=== PATIENT | male | born 2000 | race Caucasian/White ===

== ENCOUNTER 2022-07-28 12:49 | Inpatient (IN) | payer OTHER ==
[2022-07-28 14:00] VITALS: BMI 32.1
[2022-07-28] MEDS ORDERED: NALOXONE HCL (KLOXXADO) 8 MG SPRAY NS PRN (15:45)
[2022-07-28] MEDS ORDERED: BISMUTH SUBSALICYLATE 524 MG/30 ML PO PRN (15:45)
[2022-07-28] MEDS ORDERED: ACETAMINOPHEN 325 MG TABLET (FP) PO PRN ×2 (15:45)
[2022-07-28] MEDS ORDERED: MAGNESIUM HYDROX 2400MG/30ML ORAL SUSPENSION 30 ML CUP PO PRN (15:45)
[2022-07-28] MEDS ORDERED: MAG HYDROX/AL HYDROX/SIMETH 30 ML UNIT-DOSE CUP PO PRN (15:45)
[2022-07-28] MEDS ORDERED: ONDANSETRON *ODT* 4 MG TABLET SL PRN (15:45)
[2022-07-28] MEDS ORDERED: DICYCLOMINE HCL 10 MG CAPSULE PO PRN (15:45)
[2022-07-28] MEDS ORDERED: LOPERAMIDE HCL 2 MG CAPSULE PO PRN (15:45)
[2022-07-28] MEDS ORDERED: POLYETHYLENE GLYCOL (HEALTHYLAX) 3350 17 GM PACKET PO PRN (15:45)
[2022-07-28] MEDS ORDERED: IBUPROFEN 600 MG TABLET (FP) PO PRN (15:45)
[2022-07-28] MEDS ORDERED: IBUPROFEN 400 MG TABLET (FP) PO PRN (15:45)
[2022-07-28] MEDS: diazePAM 5 MG TABLET PO PRN (17:26)
[2022-07-28] MEDS: diazePAM 5 MG TABLET PO SCH ×2 (17:29→22:08)
[2022-07-28] MEDS: METHOCARBAMOL 500 MG TABLET PO PRN (18:17)
[2022-07-28] MEDS: NICOTINE 10 MG CARTRIDGE (INHALER) IH PRN (18:59)
[2022-07-28] MEDS: THIAMINE HCL 100 MG TABLET (FP) PO SCH (22:07)
[2022-07-28] MEDS: MELATONIN 5 MG TABLETS PO SCH (22:09)
[2022-07-29] MEDS: diazePAM 5 MG TABLET PO SCH ×4 (04:39→22:12)
[2022-07-29] MEDS: NICOTINE 10 MG CARTRIDGE (INHALER) IH PRN ×4 (04:39→22:14)
[2022-07-29] MEDS: METHOCARBAMOL 500 MG TABLET PO PRN ×3 (04:40→17:35)
[2022-07-29] MEDS: BENZOCAINE/MENTHOL (CHLORASEPTIC ) LOZENGE MM PRN ×3 (05:10→23:02)
[2022-07-29] MEDS: diazePAM 5 MG TABLET PO PRN ×3 (07:26→19:32)
[2022-07-29] MEDS ORDERED: methaDONE HCL 10 MG TABLET PO SCH (08:45)
[2022-07-29] MEDS ORDERED: ALBUTEROL SO4 HFA INHALER IH PRN (08:54)
[2022-07-29] MEDS: hydrOXYzine PAMOATE 25 MG CAPSULE (FP) PO PRN (09:12)
[2022-07-29] MEDS: PRENATAL VITAMINS W/ FOLIC ACID TABLET (FP) PO SCH (09:12)
[2022-07-29 10:55] LABS: HEMATOCRIT 40.8 % (35.4-49); HEMOGLOBIN 14.4 GM/dL (11.7-16.9); MCH 31.1 pg (25.7-33.7); MCHC 35.3 g/dl (32.0-35.9); MEAN CELL VOLUME 88.1 fl (80-96); MEAN PLT VOLUME 8.1 fl (7.5-11.1); PLATELET COUNT 271 10^3/uL (134-434); RBC 4.63 M/mm3 (4.00-5.60); RDW 13.3 % (11.9-15.9); WHITE BLOOD COUNT 6.2 K/mm3 (4.0-10.0)
[2022-07-29] MEDS ORDERED: FAMOTIDINE 20 MG TABLET PO ONE (10:57)
[2022-07-29] MEDS ORDERED: cloNIDine HCL 0.1 MG TABLET PO ONE (10:59)
[2022-07-29] MEDS: NICOTINE 21 MG/24 HOURS TOPICAL PATCH TD SCH (11:15)
[2022-07-29 11:24] LABS: CREATININE 0.9 mg/dL (0.55-1.3)
[2022-07-29 11:26] LABS: ALBUMIN 4.5 g/dl (3.4-5.0); BILIRUBIN,TOTAL 0.5 mg/dL (0.2-1)
[2022-07-29 11:27] LABS: BLOOD UREA NITROGEN 13.9 mg/dL (7-18)
[2022-07-29 11:29] LABS: TOT PROT 8.1 g/dl (6.4-8.2)
[2022-07-29] MEDS: NICOTINE POLACRILEX 2 MG GUM BC PRN ×3 (11:31→22:15)
[2022-07-29] MEDS: GABAPENTIN 300 MG CAPSULE PO SCH ×2 (13:24→22:11)
[2022-07-29] MEDS ORDERED: GABAPENTIN 300 MG CAPSULE PO SCH (14:00)
[2022-07-29] MEDS: PATIENT'S OWN MEDICATION (NON-FORMULARY) (Beclomethasone Dipropionate [Qvar Redihaler] 10. IH SCH ×2 (15:57→22:18)
[2022-07-29] MEDS: THIAMINE HCL 100 MG TABLET (FP) PO SCH (22:11)
[2022-07-29] MEDS: FAMOTIDINE 20 MG TABLET PO SCH (22:11)
[2022-07-29] MEDS: cloNIDine HCL 0.1 MG TABLET PO SCH (22:12)
[2022-07-29] MEDS: MELATONIN 5 MG TABLETS PO SCH (22:13)
[2022-07-30] MEDS: METHOCARBAMOL 500 MG TABLET PO PRN ×3 (04:15→22:31)
[2022-07-30] MEDS: NICOTINE 10 MG CARTRIDGE (INHALER) IH PRN ×4 (04:17→17:32)
[2022-07-30] MEDS: diazePAM 5 MG TABLET PO SCH ×3 (05:07→22:25)
[2022-07-30] MEDS: GABAPENTIN 300 MG CAPSULE PO SCH ×3 (05:11→22:24)
[2022-07-30] MEDS: hydrOXYzine PAMOATE 25 MG CAPSULE (FP) PO PRN (07:11)
[2022-07-30] MEDS: NICOTINE POLACRILEX 2 MG GUM BC PRN ×3 (07:11→17:32)
[2022-07-30] MEDS: diazePAM 5 MG TABLET PO PRN ×2 (08:53→17:29)
[2022-07-30] MEDS: NICOTINE 21 MG/24 HOURS TOPICAL PATCH TD SCH (10:25)
[2022-07-30] MEDS: cloNIDine HCL 0.1 MG TABLET PO SCH ×2 (10:25→22:25)
[2022-07-30] MEDS: FAMOTIDINE 20 MG TABLET PO SCH ×2 (10:26→22:25)
[2022-07-30] MEDS: PRENATAL VITAMINS W/ FOLIC ACID TABLET (FP) PO SCH (10:26)
[2022-07-30] MEDS: PATIENT'S OWN MEDICATION (NON-FORMULARY) (Beclomethasone Dipropionate [Qvar Redihaler] 10. IH SCH ×2 (10:28→22:24)
[2022-07-30] MEDS: BENZOCAINE/MENTHOL (CHLORASEPTIC ) LOZENGE MM PRN ×2 (10:58→23:19)
[2022-07-30] MEDS ORDERED: SUVOREXANT 10 MG TABLET PO PRN (22:00)
[2022-07-30] MEDS: THIAMINE HCL 100 MG TABLET (FP) PO SCH (22:24)
[2022-07-31] MEDS: METHOCARBAMOL 500 MG TABLET PO PRN ×2 (05:37→12:04)
[2022-07-31] MEDS: NICOTINE 10 MG CARTRIDGE (INHALER) IH PRN ×2 (05:38→09:50)
[2022-07-31] MEDS ORDERED: diazePAM 5 MG TABLET PO SCH (06:00)
[2022-07-31] MEDS: GABAPENTIN 300 MG CAPSULE PO SCH ×2 (07:00→13:04)
[2022-07-31] MEDS: PATIENT'S OWN MEDICATION (NON-FORMULARY) (Beclomethasone Dipropionate [Qvar Redihaler] 10. IH SCH (09:48)
[2022-07-31] MEDS: hydrOXYzine PAMOATE 25 MG CAPSULE (FP) PO PRN (09:49)
[2022-07-31] MEDS: cloNIDine HCL 0.1 MG TABLET PO SCH (09:49)
[2022-07-31] MEDS: FAMOTIDINE 20 MG TABLET PO SCH (09:49)
[2022-07-31] MEDS: PRENATAL VITAMINS W/ FOLIC ACID TABLET (FP) PO SCH (09:50)
[2022-07-31] MEDS: NICOTINE POLACRILEX 2 MG GUM BC PRN ×2 (09:52→12:06)
[2022-07-31] MEDS: NICOTINE 21 MG/24 HOURS TOPICAL PATCH TD SCH (10:02)
[2022-07-31] MEDS: diazePAM 5 MG TABLET PO PRN (12:05)
[2022-07-31 13:11] VITALS: BP 145/82; PULSE 83; RESP 20; TEMP 96.8
[2022-08-01] MEDS ORDERED: diazePAM 5 MG TABLET PO ONE (06:00)
== END 2022-07-31 14:06 | disposition home or self-care (01) | DRG 773 ==
LOC: YASAS 12:49 → Y6N 16:40
PROVIDERS: ADMIT Allergy & Immunology; ATTEND Surgery
PROC: HZ2ZZZZ Detoxification Services for Substance Abuse Treatment (ICD-10-PCS; principal; 2022-07-28)
DX: F13.230 Sedative, hypnotic or anxiolytic dependence with withdrawal, uncomplicated (principal); F11.20 Opioid dependence, uncomplicated; F17.210 Nicotine dependence, cigarettes, uncomplicated; F19.280 Other psychoactive substance dependence with psychoactive substance-induced anxiety disorder; F19.282 Other psychoactive substance dependence with psychoactive substance-induced sleep disorder; F41.9 Anxiety disorder, unspecified; F90.9 Attention-deficit hyperactivity disorder, unspecified type; I10 Essential (primary) hypertension; J45.909 Unspecified asthma, uncomplicated
CPT/HCPCS: 36415; 80053; 85027; 86780; C9803-CS; U0003; U0005

== ENCOUNTER 2023-03-19 20:29 | Inpatient (IN) | payer OTHER ==
[2023-03-19 21:34] VITALS: BMI 31.5
[2023-03-19] MEDS ORDERED: LOPERAMIDE HCL 2 MG CAPSULE PO PRN (22:30)
[2023-03-19] MEDS ORDERED: NALOXONE HCL (KLOXXADO) 8 MG SPRAY NS PRN (22:30)
[2023-03-19] MEDS ORDERED: NALOXONE HCL 0.4 MG/ML VIAL IM PRN (22:30)
[2023-03-19] MEDS ORDERED: POLYETHYLENE GLYCOL (HEALTHYLAX) 3350 17 GM PACKET PO PRN (22:30)
[2023-03-19] MEDS ORDERED: guaiFENesin 600 MG TABLET.ER (FP) PO PRN (22:30)
[2023-03-19] MEDS ORDERED: BISMUTH SUBSALICYLATE 524 MG/30 ML PO PRN (22:30)
[2023-03-19] MEDS ORDERED: ONDANSETRON *ODT* 4 MG TABLET SL PRN (22:30)
[2023-03-19] MEDS ORDERED: ACETAMINOPHEN 325 MG TABLET (FP) PO PRN (22:30)
[2023-03-19] MEDS ORDERED: BENZONATATE 200 MG CAPSULE PO PRN (22:30)
[2023-03-19] MEDS ORDERED: MAGNESIUM HYDROX 2400MG/30ML ORAL SUSPENSION 30 ML CUP PO PRN (22:30)
[2023-03-19] MEDS ORDERED: P-EPHED 60MG/TRIPROLIDI 2.5MG TABLET PO PRN (22:30)
[2023-03-19] MEDS ORDERED: DICYCLOMINE HCL 10 MG CAPSULE PO PRN (22:30)
[2023-03-19] MEDS ORDERED: IBUPROFEN 600 MG TABLET (FP) PO PRN (22:30)
[2023-03-19] MEDS ORDERED: IBUPROFEN 400 MG TABLET (FP) PO PRN (22:30)
[2023-03-19] MEDS ORDERED: BENZOCAINE/MENTHOL (CHLORASEPTIC ) LOZENGE MM PRN (22:30)
[2023-03-19] MEDS ORDERED: ALBUTEROL SO4 HFA INHALER IH PRN (22:31)
[2023-03-19] MEDS ORDERED: GABAPENTIN 300 MG CAPSULE PO ONE (23:00)
[2023-03-19] MEDS: cloNIDine HCL 0.1 MG TABLET PO PRN (23:38)
[2023-03-19] MEDS: diazePAM 5 MG TABLET PO PRN (23:38)
[2023-03-19] MEDS: METHOCARBAMOL 500 MG TABLET PO PRN (23:38)
[2023-03-19] MEDS: NICOTINE POLACRILEX 4 MG GUM BUC PRN (23:41)
[2023-03-20] MEDS: hydrOXYzine PAMOATE 25 MG CAPSULE (FP) PO PRN ×2 (05:37→22:05)
[2023-03-20] MEDS: diazePAM 5 MG TABLET PO PRN ×4 (05:37→20:20)
[2023-03-20] MEDS: METHOCARBAMOL 500 MG TABLET PO PRN ×2 (10:08→17:24)
[2023-03-20] MEDS: cloNIDine HCL 0.1 MG TABLET PO PRN ×2 (10:09→22:05)
[2023-03-20] MEDS: PRENATAL VITAMINS W/ FOLIC ACID TABLET (FP) PO SCH (10:09)
[2023-03-20] MEDS: NICOTINE POLACRILEX 4 MG GUM BUC PRN ×4 (10:10→22:05)
[2023-03-20] MEDS ORDERED: methaDONE HCL 40 MG DISPERSABLE TABLET PO SCH (10:30)
[2023-03-20] MEDS: diazePAM 5 MG TABLET PO SCH ×3 (11:29→22:05)
[2023-03-20 12:16] LABS: HEMATOCRIT 39.6 % (35.4-49); HEMOGLOBIN 13.4 GM/dL (11.7-16.9); MCH 27.3 pg (25.7-33.7); MCHC 33.9 g/dl (32.0-35.9); MEAN CELL VOLUME 80.4 fl (80-96); MEAN PLT VOLUME 7.7 fl (7.5-11.1); PLATELET COUNT 296 10^3/uL (134-434); RBC 4.93 M/mm3 (4.00-5.60); RDW 17.2 % (11.9-15.9); WHITE BLOOD COUNT 5.5 K/mm3 (4.0-10.0)
[2023-03-20 12:19] LABS: POTASSIUM 4.3 mmol/L (3.5-5.1)
[2023-03-20 12:21] LABS: ALBUMIN 3.7 g/dl (3.4-5.0); CALCIUM 8.8 mg/dL (8.5-10.1)
[2023-03-20 12:23] LABS: BLOOD UREA NITROGEN 18.5 mg/dL (7-18)
[2023-03-20 12:26] LABS: BILIRUBIN,TOTAL 0.5 mg/dL (0.2-1)
[2023-03-20 12:28] LABS: TOT PROT 7.4 g/dl (6.4-8.2)
[2023-03-20] MEDS: GABAPENTIN 400 MG CAPSULE PO SCH ×2 (14:15→22:04)
[2023-03-20] MEDS: MELATONIN 5 MG TABLETS PO SCH (22:04)
[2023-03-20] MEDS: THIAMINE HCL 100 MG TABLET (FP) PO SCH (22:05)
[2023-03-21] MEDS: GABAPENTIN 400 MG CAPSULE PO SCH ×3 (05:44→22:07)
[2023-03-21] MEDS: diazePAM 5 MG TABLET PO SCH ×3 (05:44→22:06)
[2023-03-21] MEDS: METHOCARBAMOL 500 MG TABLET PO PRN ×3 (05:46→20:37)
[2023-03-21] MEDS: diazePAM 5 MG TABLET PO PRN ×4 (07:42→20:39)
[2023-03-21] MEDS: MAG HYDROX/AL HYDROX/SIMETH 30 ML UNIT-DOSE CUP PO PRN (07:43)
[2023-03-21] MEDS: NICOTINE POLACRILEX 4 MG GUM BUC PRN ×5 (09:10→20:39)
[2023-03-21] MEDS: hydrOXYzine PAMOATE 25 MG CAPSULE (FP) PO PRN ×2 (09:10→22:07)
[2023-03-21] MEDS: cloNIDine HCL 0.1 MG TABLET PO PRN ×2 (10:06→22:07)
[2023-03-21] MEDS: PRENATAL VITAMINS W/ FOLIC ACID TABLET (FP) PO SCH (10:06)
[2023-03-21] MEDS: NICOTINE 21 MG/24 HOURS TOPICAL PATCH TD SCH (11:59)
[2023-03-21] MEDS: PANTOPRAZOLE 20 MG TABLET PO SCH (11:59)
[2023-03-21] MEDS: THIAMINE HCL 100 MG TABLET (FP) PO SCH (22:07)
[2023-03-21] MEDS: MELATONIN 5 MG TABLETS PO SCH (22:07)
[2023-03-22] MEDS: diazePAM 5 MG TABLET PO SCH ×2 (05:37→17:06)
[2023-03-22] MEDS: GABAPENTIN 400 MG CAPSULE PO SCH ×3 (05:37→22:16)
[2023-03-22] MEDS: METHOCARBAMOL 500 MG TABLET PO PRN ×3 (05:38→22:16)
[2023-03-22] MEDS: NICOTINE POLACRILEX 4 MG GUM BUC PRN ×6 (05:41→22:18)
[2023-03-22] MEDS: MAG HYDROX/AL HYDROX/SIMETH 30 ML UNIT-DOSE CUP PO PRN (06:42)
[2023-03-22] MEDS: diazePAM 5 MG TABLET PO PRN ×4 (07:46→23:21)
[2023-03-22] MEDS: PANTOPRAZOLE 20 MG TABLET PO SCH (10:07)
[2023-03-22] MEDS: PRENATAL VITAMINS W/ FOLIC ACID TABLET (FP) PO SCH (10:07)
[2023-03-22] MEDS: NICOTINE 21 MG/24 HOURS TOPICAL PATCH TD SCH (10:08)
[2023-03-22] MEDS: hydrOXYzine PAMOATE 25 MG CAPSULE (FP) PO PRN ×2 (10:09→22:16)
[2023-03-22] MEDS: cloNIDine HCL 0.1 MG TABLET PO PRN ×2 (10:09→22:16)
[2023-03-22] MEDS: THIAMINE HCL 100 MG TABLET (FP) PO SCH (22:16)
[2023-03-22] MEDS: MELATONIN 5 MG TABLETS PO SCH (22:16)
[2023-03-23] MEDS: PANTOPRAZOLE 40 MG TABLET PO SCH (05:25)
[2023-03-23] MEDS: GABAPENTIN 400 MG CAPSULE PO SCH ×2 (05:25→13:58)
[2023-03-23] MEDS: METHOCARBAMOL 500 MG TABLET PO PRN ×3 (05:27→17:25)
[2023-03-23] MEDS ORDERED: diazePAM 5 MG TABLET PO ONE ×2 (06:00→18:00)
[2023-03-23] MEDS: diazePAM 5 MG TABLET PO PRN (09:36)
[2023-03-23] MEDS: PRENATAL VITAMINS W/ FOLIC ACID TABLET (FP) PO SCH (09:36)
[2023-03-23] MEDS: hydrOXYzine PAMOATE 25 MG CAPSULE (FP) PO PRN ×2 (09:36→22:13)
[2023-03-23] MEDS: NICOTINE 21 MG/24 HOURS TOPICAL PATCH TD SCH (09:39)
[2023-03-23] MEDS: NICOTINE POLACRILEX 4 MG GUM BUC PRN ×4 (09:50→22:14)
[2023-03-23] MEDS: cloNIDine HCL 0.1 MG TABLET PO PRN (11:27)
[2023-03-23] MEDS: THIAMINE HCL 100 MG TABLET (FP) PO SCH (22:13)
[2023-03-23] MEDS: GABAPENTIN 300 MG CAPSULE PO SCH (22:13)
[2023-03-23] MEDS: MELATONIN 5 MG TABLETS PO SCH (22:13)
[2023-03-24] MEDS: PANTOPRAZOLE 40 MG TABLET PO SCH (05:16)
[2023-03-24] MEDS: GABAPENTIN 300 MG CAPSULE PO SCH ×2 (05:16→13:53)
[2023-03-24] MEDS: METHOCARBAMOL 500 MG TABLET PO PRN ×2 (05:18→13:53)
[2023-03-24] MEDS ORDERED: diazePAM 5 MG TABLET PO ONE (06:00)
[2023-03-24] MEDS: PRENATAL VITAMINS W/ FOLIC ACID TABLET (FP) PO SCH (10:14)
[2023-03-24] MEDS: NICOTINE 21 MG/24 HOURS TOPICAL PATCH TD SCH (10:14)
[2023-03-24] MEDS: hydrOXYzine PAMOATE 25 MG CAPSULE (FP) PO PRN (10:15)
[2023-03-24] MEDS: cloNIDine HCL 0.1 MG TABLET PO PRN (10:15)
[2023-03-24] MEDS: NICOTINE POLACRILEX 4 MG GUM BUC PRN ×2 (10:16→17:48)
[2023-03-24 16:47] VITALS: BP 132/73; PULSE 90; RESP 19; TEMP 97.8
== END 2023-03-24 19:23 | disposition other institution (70) | DRG 773 ==
LOC: YASAS 20:29 → Y3N 22:58
PROVIDERS: ADMIT Allergy & Immunology; ATTEND Surgery
PROC: HZ2ZZZZ Detoxification Services for Substance Abuse Treatment (ICD-10-PCS; principal; 2023-03-19)
DX: F13.230 Sedative, hypnotic or anxiolytic dependence with withdrawal, uncomplicated (principal); F11.20 Opioid dependence, uncomplicated; F17.210 Nicotine dependence, cigarettes, uncomplicated; I10 Essential (primary) hypertension; J45.20 Mild intermittent asthma, uncomplicated; K21.9 Gastro-esophageal reflux disease without esophagitis; Z86.59 Personal history of other mental and behavioral disorders
CPT/HCPCS: 36415; 80053; 85027; 86780; 87635

== ENCOUNTER 2023-04-19 19:32 | Inpatient (IN) | payer OTHER ==
[2023-04-19 21:13] VITALS: BMI 42.6
[2023-04-19] MEDS ORDERED: ALBUTEROL SO4 0.083% IH SOL 2.5 MG/3 ML VIAL.NEB. NEB PRN (22:50)
[2023-04-19] MEDS ORDERED: P-EPHED 60MG/TRIPROLIDI 2.5MG TABLET PO PRN (23:00)
[2023-04-19] MEDS ORDERED: IBUPROFEN 400 MG TABLET (FP) PO PRN (23:00)
[2023-04-19] MEDS ORDERED: MAG HYDROX/AL HYDROX/SIMETH 30 ML UNIT-DOSE CUP PO PRN (23:00)
[2023-04-19] MEDS ORDERED: NALOXONE HCL 0.4 MG/ML VIAL IM PRN (23:00)
[2023-04-19] MEDS ORDERED: LOPERAMIDE HCL 2 MG CAPSULE PO PRN (23:00)
[2023-04-19] MEDS ORDERED: NALOXONE HCL (KLOXXADO) 8 MG SPRAY NS PRN (23:00)
[2023-04-19] MEDS ORDERED: BENZOCAINE/MENTHOL (CHLORASEPTIC ) LOZENGE MM PRN (23:00)
[2023-04-19] MEDS ORDERED: ACETAMINOPHEN 325 MG TABLET (FP) PO PRN (23:00)
[2023-04-19] MEDS ORDERED: DICYCLOMINE HCL 10 MG CAPSULE PO PRN (23:00)
[2023-04-19] MEDS ORDERED: BENZONATATE 200 MG CAPSULE PO PRN (23:00)
[2023-04-19] MEDS ORDERED: ONDANSETRON *ODT* 4 MG TABLET SL PRN (23:00)
[2023-04-19] MEDS ORDERED: BISMUTH SUBSALICYLATE 524 MG/30 ML PO PRN (23:00)
[2023-04-19] MEDS ORDERED: IBUPROFEN 600 MG TABLET (FP) PO PRN (23:00)
[2023-04-19] MEDS ORDERED: guaiFENesin 600 MG TABLET.ER (FP) PO PRN (23:00)
[2023-04-19] MEDS ORDERED: MAGNESIUM HYDROX 2400MG/30ML ORAL SUSPENSION 30 ML CUP PO PRN (23:00)
[2023-04-19] MEDS ORDERED: POLYETHYLENE GLYCOL (HEALTHYLAX) 3350 17 GM PACKET PO PRN (23:00)
[2023-04-20] MEDS: cloNIDine HCL 0.1 MG TABLET PO SCH ×3 (02:00→22:02)
[2023-04-20] MEDS ORDERED: cloNIDine HCL 0.1 MG TABLET ONE (02:13)
[2023-04-20] MEDS ORDERED: diazePAM 5 MG TABLET ONE (02:13)
[2023-04-20] MEDS ORDERED: IBUPROFEN 400 MG TABLET (FP) PO ONE (02:13)
[2023-04-20] MEDS: diazePAM 5 MG TABLET PO PRN ×2 (02:16→13:24)
[2023-04-20] MEDS: diazePAM 5 MG TABLET PO SCH ×5 (02:19→22:04)
[2023-04-20] MEDS: METHOCARBAMOL 500 MG TABLET PO PRN ×3 (03:09→20:36)
[2023-04-20] MEDS: PANTOPRAZOLE 40 MG TABLET PO SCH (06:13)
[2023-04-20] MEDS: NICOTINE POLACRILEX 4 MG GUM BUC PRN ×4 (07:11→20:38)
[2023-04-20] MEDS ORDERED: methaDONE HCL 10 MG TABLET PO SCH (08:45)
[2023-04-20] MEDS: PRENATAL VITAMINS W/ FOLIC ACID TABLET (FP) PO SCH (10:12)
[2023-04-20] MEDS: PATIENT'S OWN MEDICATION (NON-FORMULARY) (Amoxicillin/Potassium Clav [Amox-Clav 875-125 Mg PO SCH ×2 (10:12→16:58)
[2023-04-20] MEDS: NICOTINE 21 MG/24 HOURS TOPICAL PATCH TD SCH (11:30)
[2023-04-20] MEDS: GABAPENTIN 300 MG CAPSULE PO SCH ×2 (13:23→22:02)
[2023-04-20] MEDS ORDERED: MELATONIN 5 MG TABLETS PO SCH (22:00)
[2023-04-20] MEDS: ALBUTEROL SO4 HFA INHALER IH PRN (22:01)
[2023-04-20] MEDS: THIAMINE HCL 100 MG TABLET (FP) PO SCH (22:02)
[2023-04-20] MEDS: SUVOREXANT 10 MG TABLET PO PRN (22:04)
[2023-04-21] MEDS: GABAPENTIN 300 MG CAPSULE PO SCH ×3 (05:53→22:11)
[2023-04-21] MEDS: diazePAM 5 MG TABLET PO SCH ×3 (05:53→22:11)
[2023-04-21] MEDS: NICOTINE POLACRILEX 4 MG GUM BUC PRN ×5 (06:05→22:15)
[2023-04-21] MEDS: PANTOPRAZOLE 40 MG TABLET PO SCH (06:30)
[2023-04-21] MEDS: METHOCARBAMOL 500 MG TABLET PO PRN ×2 (06:45→15:09)
[2023-04-21] MEDS: PATIENT'S OWN MEDICATION (NON-FORMULARY) (Amoxicillin/Potassium Clav [Amox-Clav 875-125 Mg PO SCH ×2 (08:05→17:00)
[2023-04-21] MEDS: cloNIDine HCL 0.1 MG TABLET PO SCH ×2 (09:12→22:11)
[2023-04-21] MEDS: NICOTINE 21 MG/24 HOURS TOPICAL PATCH TD SCH (09:12)
[2023-04-21] MEDS: PRENATAL VITAMINS W/ FOLIC ACID TABLET (FP) PO SCH (10:21)
[2023-04-21] MEDS: diazePAM 5 MG TABLET PO PRN ×2 (10:24→16:59)
[2023-04-21] MEDS ORDERED: PATIENT'S OWN MEDICATION (NON-FORMULARY) (Omeprazole [Omeprazole] 20 MG Tablet.Dr) PO SCH (12:00)
[2023-04-21] MEDS: THIAMINE HCL 100 MG TABLET (FP) PO SCH (22:11)
[2023-04-21] MEDS: SUVOREXANT 10 MG TABLET PO PRN (22:13)
[2023-04-21] MEDS: ALBUTEROL SO4 HFA INHALER IH PRN (22:15)
[2023-04-22] MEDS: GABAPENTIN 300 MG CAPSULE PO SCH ×3 (05:54→22:09)
[2023-04-22] MEDS: diazePAM 5 MG TABLET PO SCH ×2 (05:54→17:15)
[2023-04-22] MEDS: PANTOPRAZOLE 40 MG TABLET PO SCH (06:24)
[2023-04-22] MEDS: METHOCARBAMOL 500 MG TABLET PO PRN ×2 (07:01→17:15)
[2023-04-22] MEDS: NICOTINE POLACRILEX 4 MG GUM BUC PRN ×4 (07:01→17:16)
[2023-04-22] MEDS: PRENATAL VITAMINS W/ FOLIC ACID TABLET (FP) PO SCH (10:11)
[2023-04-22] MEDS: diazePAM 5 MG TABLET PO PRN ×3 (10:12→22:11)
[2023-04-22] MEDS: cloNIDine HCL 0.1 MG TABLET PO SCH ×2 (10:13→22:09)
[2023-04-22] MEDS: NICOTINE 21 MG/24 HOURS TOPICAL PATCH TD SCH (10:13)
[2023-04-22 10:26] LABS: HEMATOCRIT 45.7 % (35.4-49); HEMOGLOBIN 15.5 GM/dL (11.7-16.9); MCH 26.9 pg (25.7-33.7); MCHC 33.9 g/dl (32.0-35.9); MEAN CELL VOLUME 79.5 fl (80-96); MEAN PLT VOLUME 7.6 fl (7.5-11.1); PLATELET COUNT 325 10^3/uL (134-434); RBC 5.74 M/mm3 (4.00-5.60); RDW 18.3 % (11.9-15.9); WHITE BLOOD COUNT 4.9 K/mm3 (4.0-10.0)
[2023-04-22 11:05] LABS: POTASSIUM 3.9 mmol/L (3.5-5.1)
[2023-04-22 11:11] LABS: ALBUMIN 4.2 g/dl (3.4-5.0); BLOOD UREA NITROGEN 12.3 mg/dL (7-18); CALCIUM 9.8 mg/dL (8.5-10.1)
[2023-04-22 11:14] LABS: CREATININE 1.1 mg/dL (0.55-1.3)
[2023-04-22 11:16] LABS: BILIRUBIN,TOTAL 0.5 mg/dL (0.2-1); TOT PROT 7.7 g/dl (6.4-8.2)
[2023-04-22] MEDS: THIAMINE HCL 100 MG TABLET (FP) PO SCH (22:09)
[2023-04-22] MEDS: MOMETASONE FUROATE 110 MCG/IH INHALER IH SCH (22:12)
[2023-04-22] MEDS: SUVOREXANT 15 MG TABLET PO PRN (23:02)
[2023-04-23] MEDS: GABAPENTIN 300 MG CAPSULE PO SCH ×3 (05:15→22:25)
[2023-04-23] MEDS ORDERED: diazePAM 5 MG TABLET PO ONE ×2 (06:00→18:00)
[2023-04-23] MEDS: PANTOPRAZOLE 40 MG TABLET PO SCH (06:17)
[2023-04-23] MEDS: PRENATAL VITAMINS W/ FOLIC ACID TABLET (FP) PO SCH (10:32)
[2023-04-23] MEDS: cloNIDine HCL 0.1 MG TABLET PO SCH ×2 (10:32→22:25)
[2023-04-23] MEDS: NICOTINE 21 MG/24 HOURS TOPICAL PATCH TD SCH (10:32)
[2023-04-23] MEDS: METHOCARBAMOL 500 MG TABLET PO PRN ×2 (10:34→17:39)
[2023-04-23] MEDS ORDERED: diazePAM 5 MG TABLET PO PRN (10:43)
[2023-04-23] MEDS: NICOTINE POLACRILEX 4 MG GUM BUC PRN ×2 (13:17→17:40)
[2023-04-23] MEDS: THIAMINE HCL 100 MG TABLET (FP) PO SCH (22:25)
[2023-04-23] MEDS: SUVOREXANT 15 MG TABLET PO PRN (22:25)
[2023-04-23] MEDS: MOMETASONE FUROATE 110 MCG/IH INHALER IH SCH (22:34)
[2023-04-24] MEDS: GABAPENTIN 300 MG CAPSULE PO SCH ×2 (05:51→13:44)
[2023-04-24] MEDS: METHOCARBAMOL 500 MG TABLET PO PRN (05:57)
[2023-04-24] MEDS: PANTOPRAZOLE 40 MG TABLET PO SCH (06:29)
[2023-04-24] MEDS: NICOTINE 21 MG/24 HOURS TOPICAL PATCH TD SCH (10:26)
[2023-04-24] MEDS: PRENATAL VITAMINS W/ FOLIC ACID TABLET (FP) PO SCH (10:26)
[2023-04-24] MEDS: cloNIDine HCL 0.1 MG TABLET PO SCH (10:26)
[2023-04-24] MEDS: NICOTINE POLACRILEX 4 MG GUM BUC PRN (10:29)
[2023-04-24 13:00] VITALS: BP 117/64; PULSE 70; RESP 18; TEMP 97.3
== END 2023-04-24 15:15 | disposition other institution (70) | DRG 773 ==
LOC: YASAS 19:32 → Y6N 04-20
PROVIDERS: ADMIT Allergy & Immunology; ATTEND Surgery
PROC: HZ2ZZZZ Detoxification Services for Substance Abuse Treatment (ICD-10-PCS; principal; 2023-04-20)
DX: F13.230 Sedative, hypnotic or anxiolytic dependence with withdrawal, uncomplicated (principal); F11.20 Opioid dependence, uncomplicated; F17.210 Nicotine dependence, cigarettes, uncomplicated; F19.282 Other psychoactive substance dependence with psychoactive substance-induced sleep disorder; F19.280 Other psychoactive substance dependence with psychoactive substance-induced anxiety disorder; F41.1 Generalized anxiety disorder; I10 Essential (primary) hypertension; J45.20 Mild intermittent asthma, uncomplicated; K21.9 Gastro-esophageal reflux disease without esophagitis; K08.89 Other specified disorders of teeth and supporting structures
CPT/HCPCS: 36415; 80053; 85027; 86780; 87635; 87811

== ENCOUNTER 2023-04-24 15:10 | Inpatient (IN) | payer OTHER ==
[2023-04-24] MEDS ORDERED: LOPERAMIDE HCL 2 MG CAPSULE PO PRN (17:23)
[2023-04-24] MEDS ORDERED: NALOXONE HCL 0.4 MG/ML VIAL IVPUSH PRN (17:23)
[2023-04-24] MEDS ORDERED: BENZONATATE 200 MG CAPSULE PO PRN (17:23)
[2023-04-24] MEDS ORDERED: COLLOIDAL OATMEAL 1 BAR EACH TP PRN (17:23)
[2023-04-24] MEDS ORDERED: MAGNESIUM HYDROX 2400MG/30ML ORAL SUSPENSION 30 ML CUP PO PRN (17:23)
[2023-04-24] MEDS ORDERED: BENZOCAINE/MENTHOL (CHLORASEPTIC ) LOZENGE MM PRN (17:23)
[2023-04-24] MEDS ORDERED: POLYETHYLENE GLYCOL (HEALTHYLAX) 3350 17 GM PACKET PO PRN (17:23)
[2023-04-24] MEDS ORDERED: NALOXONE HCL (KLOXXADO) 8 MG SPRAY NS PRN (17:23)
[2023-04-24] MEDS ORDERED: ACETAMINOPHEN 325 MG TABLET (FP) PO PRN (17:23)
[2023-04-24] MEDS ORDERED: guaiFENesin 600 MG TABLET.ER (FP) PO PRN (17:23)
[2023-04-24] MEDS ORDERED: ALBUTEROL SO4 HFA INHALER IH PRN (17:25)
[2023-04-24] MEDS: NICOTINE POLACRILEX 2 MG GUM BUC PRN ×2 (19:24→21:51)
[2023-04-24] MEDS: MOMETASONE FUROATE 110 MCG/IH INHALER IH SCH (21:48)
[2023-04-24] MEDS: THIAMINE HCL 100 MG TABLET (FP) PO SCH (21:48)
[2023-04-24] MEDS: METHOCARBAMOL 500 MG TABLET PO PRN (21:48)
[2023-04-24] MEDS: hydrOXYzine PAMOATE 25 MG CAPSULE (FP) PO PRN (21:48)
[2023-04-24] MEDS: MELATONIN 5 MG TABLETS PO SCH (21:48)
[2023-04-24] MEDS ORDERED: SUVOREXANT 15 MG TABLET PO ONE (22:00)
[2023-04-24] MEDS ORDERED: SUVOREXANT 10 MG TABLET PO ONE (22:00)
[2023-04-25] MEDS ORDERED: methaDONE HCL 10 MG TABLET PO SCH (06:00)
[2023-04-25] MEDS: PANTOPRAZOLE 40 MG TABLET PO SCH (06:25)
[2023-04-25] MEDS: METHOCARBAMOL 500 MG TABLET PO PRN ×2 (06:25→21:30)
[2023-04-25] MEDS: hydrOXYzine PAMOATE 25 MG CAPSULE (FP) PO PRN ×2 (06:25→21:31)
[2023-04-25] MEDS: IBUPROFEN 400 MG TABLET (FP) PO PRN ×2 (07:42→19:59)
[2023-04-25] MEDS: NICOTINE POLACRILEX 2 MG GUM BUC PRN ×4 (09:00→20:00)
[2023-04-25] MEDS: PRENATAL VITAMINS W/ FOLIC ACID TABLET (FP) PO SCH (09:00)
[2023-04-25] MEDS ORDERED: GABAPENTIN 300 MG CAPSULE PO ONE (09:15)
[2023-04-25] MEDS: cloNIDine HCL 0.1 MG TABLET PO SCH ×2 (09:49→21:30)
[2023-04-25] MEDS: GABAPENTIN 300 MG CAPSULE PO SCH ×2 (14:08→21:31)
[2023-04-25] MEDS: THIAMINE HCL 100 MG TABLET (FP) PO SCH (21:30)
[2023-04-25] MEDS: SUVOREXANT 15 MG TABLET PO PRN (21:33)
[2023-04-25] MEDS: MELATONIN 5 MG TABLETS PO SCH (21:49)
[2023-04-25] MEDS: MOMETASONE FUROATE 110 MCG/IH INHALER IH SCH (22:12)
[2023-04-26] MEDS: PANTOPRAZOLE 40 MG TABLET PO SCH (06:39)
[2023-04-26] MEDS: GABAPENTIN 300 MG CAPSULE PO SCH ×3 (06:39→21:50)
[2023-04-26] MEDS: METHOCARBAMOL 500 MG TABLET PO PRN ×2 (06:41→21:50)
[2023-04-26] MEDS: hydrOXYzine PAMOATE 25 MG CAPSULE (FP) PO PRN ×2 (06:41→21:50)
[2023-04-26] MEDS: NICOTINE POLACRILEX 2 MG GUM BUC PRN ×4 (06:42→17:23)
[2023-04-26] MEDS: PRENATAL VITAMINS W/ FOLIC ACID TABLET (FP) PO SCH (09:20)
[2023-04-26] MEDS: cloNIDine HCL 0.1 MG TABLET PO SCH ×2 (09:20→21:50)
[2023-04-26] MEDS: MAG HYDROX/AL HYDROX/SIMETH 30 ML UNIT-DOSE CUP PO PRN (11:12)
[2023-04-26] MEDS ORDERED: NICOTINE 14 MG/24 HOURS TOPICAL PATCH TD PRN (12:21)
[2023-04-26] MEDS ORDERED: NICOTINE 14 MG/24 HOURS TOPICAL PATCH TD SCH (12:30)
[2023-04-26] MEDS: NICOTINE 21 MG/24 HOURS TOPICAL PATCH TD PRN (13:42)
[2023-04-26] MEDS: IBUPROFEN 600 MG TABLET (FP) PO PRN (17:22)
[2023-04-26] MEDS: THIAMINE HCL 100 MG TABLET (FP) PO SCH (21:48)
[2023-04-26] MEDS: MELATONIN 5 MG TABLETS PO SCH (21:48)
[2023-04-26] MEDS: MOMETASONE FUROATE 110 MCG/IH INHALER IH SCH (21:50)
[2023-04-26] MEDS: SUVOREXANT 15 MG TABLET PO PRN (21:50)
[2023-04-27] MEDS: METHOCARBAMOL 500 MG TABLET PO PRN ×2 (06:33→21:47)
[2023-04-27] MEDS: PANTOPRAZOLE 40 MG TABLET PO SCH (06:33)
[2023-04-27] MEDS: GABAPENTIN 300 MG CAPSULE PO SCH ×3 (06:33→21:47)
[2023-04-27] MEDS: hydrOXYzine PAMOATE 25 MG CAPSULE (FP) PO PRN ×2 (06:33→21:47)
[2023-04-27] MEDS: NICOTINE POLACRILEX 2 MG GUM BUC PRN ×5 (06:34→21:50)
[2023-04-27] MEDS ORDERED: methaDONE HCL 10 MG TABLET PO SCH (07:55)
[2023-04-27] MEDS: PRENATAL VITAMINS W/ FOLIC ACID TABLET (FP) PO SCH (10:02)
[2023-04-27] MEDS: cloNIDine HCL 0.1 MG TABLET PO SCH ×2 (10:02→21:47)
[2023-04-27] MEDS: NICOTINE 21 MG/24 HOURS TOPICAL PATCH TD PRN (10:04)
[2023-04-27] MEDS: IBUPROFEN 600 MG TABLET (FP) PO PRN (11:03)
[2023-04-27] MEDS: MELATONIN 5 MG TABLETS PO SCH (21:47)
[2023-04-27] MEDS: THIAMINE HCL 100 MG TABLET (FP) PO SCH (21:47)
[2023-04-27] MEDS: SUVOREXANT 15 MG TABLET PO PRN (21:48)
[2023-04-27] MEDS: MOMETASONE FUROATE 110 MCG/IH INHALER IH SCH (23:45)
[2023-04-28] MEDS: GABAPENTIN 300 MG CAPSULE PO SCH ×3 (06:15→21:45)
[2023-04-28] MEDS: PANTOPRAZOLE 40 MG TABLET PO SCH (06:15)
[2023-04-28] MEDS: hydrOXYzine PAMOATE 25 MG CAPSULE (FP) PO PRN ×2 (06:15→21:45)
[2023-04-28] MEDS: NICOTINE POLACRILEX 2 MG GUM BUC PRN ×5 (06:16→21:43)
[2023-04-28] MEDS: METHOCARBAMOL 500 MG TABLET PO PRN ×2 (06:16→21:45)
[2023-04-28] MEDS: NICOTINE 21 MG/24 HOURS TOPICAL PATCH TD PRN (09:41)
[2023-04-28] MEDS: cloNIDine HCL 0.1 MG TABLET PO SCH ×2 (09:41→21:45)
[2023-04-28] MEDS: PRENATAL VITAMINS W/ FOLIC ACID TABLET (FP) PO SCH (09:41)
[2023-04-28] MEDS: MOMETASONE FUROATE 110 MCG/IH INHALER IH SCH (21:44)
[2023-04-28] MEDS: MELATONIN 5 MG TABLETS PO SCH (21:45)
[2023-04-28] MEDS: THIAMINE HCL 100 MG TABLET (FP) PO SCH (21:45)
[2023-04-28] MEDS: SUVOREXANT 15 MG TABLET PO PRN (21:46)
[2023-04-29] MEDS: GABAPENTIN 300 MG CAPSULE PO SCH ×3 (06:16→21:08)
[2023-04-29] MEDS: METHOCARBAMOL 500 MG TABLET PO PRN ×2 (06:16→21:10)
[2023-04-29] MEDS: PANTOPRAZOLE 40 MG TABLET PO SCH (06:16)
[2023-04-29] MEDS: hydrOXYzine PAMOATE 25 MG CAPSULE (FP) PO PRN ×2 (06:16→21:10)
[2023-04-29] MEDS: NICOTINE POLACRILEX 2 MG GUM BUC PRN ×5 (06:18→21:11)
[2023-04-29] MEDS: PRENATAL VITAMINS W/ FOLIC ACID TABLET (FP) PO SCH (10:29)
[2023-04-29] MEDS: cloNIDine HCL 0.1 MG TABLET PO SCH ×2 (10:30→21:08)
[2023-04-29] MEDS: NICOTINE 21 MG/24 HOURS TOPICAL PATCH TD PRN (10:31)
[2023-04-29] MEDS: THIAMINE HCL 100 MG TABLET (FP) PO SCH (21:08)
[2023-04-29] MEDS: MELATONIN 5 MG TABLETS PO SCH (21:08)
[2023-04-29] MEDS: MOMETASONE FUROATE 110 MCG/IH INHALER IH SCH (21:09)
[2023-04-29] MEDS: SUVOREXANT 15 MG TABLET PO PRN (21:10)
[2023-04-30] MEDS: PANTOPRAZOLE 40 MG TABLET PO SCH (06:25)
[2023-04-30] MEDS: GABAPENTIN 300 MG CAPSULE PO SCH ×3 (06:25→21:25)
[2023-04-30] MEDS: hydrOXYzine PAMOATE 25 MG CAPSULE (FP) PO PRN (06:25)
[2023-04-30] MEDS: METHOCARBAMOL 500 MG TABLET PO PRN (06:25)
[2023-04-30] MEDS: NICOTINE POLACRILEX 2 MG GUM BUC PRN ×5 (06:27→21:27)
[2023-04-30] MEDS: cloNIDine HCL 0.1 MG TABLET PO SCH ×2 (09:34→21:25)
[2023-04-30] MEDS: PRENATAL VITAMINS W/ FOLIC ACID TABLET (FP) PO SCH (09:35)
[2023-04-30] MEDS: NICOTINE 21 MG/24 HOURS TOPICAL PATCH TD PRN (09:36)
[2023-04-30] MEDS: THIAMINE HCL 100 MG TABLET (FP) PO SCH (21:24)
[2023-04-30] MEDS: SUVOREXANT 15 MG TABLET PO PRN (21:24)
[2023-04-30] MEDS: MELATONIN 5 MG TABLETS PO SCH (21:25)
[2023-04-30] MEDS: MOMETASONE FUROATE 110 MCG/IH INHALER IH SCH (23:22)
[2023-05-01] MEDS: GABAPENTIN 300 MG CAPSULE PO SCH ×3 (06:41→21:55)
[2023-05-01] MEDS: PANTOPRAZOLE 40 MG TABLET PO SCH (06:41)
[2023-05-01] MEDS: hydrOXYzine PAMOATE 25 MG CAPSULE (FP) PO PRN ×2 (06:41→21:29)
[2023-05-01] MEDS: NICOTINE POLACRILEX 2 MG GUM BUC PRN ×4 (06:43→21:31)
[2023-05-01] MEDS: NICOTINE 21 MG/24 HOURS TOPICAL PATCH TD PRN (09:58)
[2023-05-01] MEDS: PRENATAL VITAMINS W/ FOLIC ACID TABLET (FP) PO SCH (09:58)
[2023-05-01] MEDS: cloNIDine HCL 0.1 MG TABLET PO SCH ×2 (09:58→21:28)
[2023-05-01] MEDS: MELATONIN 5 MG TABLETS PO SCH (21:28)
[2023-05-01] MEDS: MOMETASONE FUROATE 110 MCG/IH INHALER IH SCH (21:28)
[2023-05-01] MEDS: THIAMINE HCL 100 MG TABLET (FP) PO SCH (21:28)
[2023-05-01] MEDS ORDERED: SUVOREXANT 5 MG TABLET PO PRN (22:00)
[2023-05-02] MEDS: PANTOPRAZOLE 40 MG TABLET PO SCH (06:23)
[2023-05-02] MEDS: hydrOXYzine PAMOATE 25 MG CAPSULE (FP) PO PRN ×2 (06:23→21:22)
[2023-05-02] MEDS: GABAPENTIN 300 MG CAPSULE PO SCH ×3 (06:23→21:21)
[2023-05-02] MEDS: cloNIDine HCL 0.1 MG TABLET PO SCH ×2 (09:31→21:21)
[2023-05-02] MEDS: PRENATAL VITAMINS W/ FOLIC ACID TABLET (FP) PO SCH (09:31)
[2023-05-02] MEDS: NICOTINE 21 MG/24 HOURS TOPICAL PATCH TD PRN (09:31)
[2023-05-02] MEDS: IBUPROFEN 400 MG TABLET (FP) PO PRN ×2 (11:08→19:42)
[2023-05-02] MEDS: NICOTINE POLACRILEX 2 MG GUM BUC PRN ×4 (12:10→19:43)
[2023-05-02] MEDS: MELATONIN 5 MG TABLETS PO SCH (21:19)
[2023-05-02] MEDS: THIAMINE HCL 100 MG TABLET (FP) PO SCH (21:20)
[2023-05-02] MEDS: MOMETASONE FUROATE 110 MCG/IH INHALER IH SCH (21:22)
[2023-05-03] MEDS: GABAPENTIN 300 MG CAPSULE PO SCH ×3 (06:24→21:24)
[2023-05-03] MEDS: PANTOPRAZOLE 40 MG TABLET PO SCH (06:25)
[2023-05-03] MEDS: hydrOXYzine PAMOATE 25 MG CAPSULE (FP) PO PRN ×2 (06:25→21:24)
[2023-05-03] MEDS: NICOTINE POLACRILEX 2 MG GUM BUC PRN ×4 (06:26→21:26)
[2023-05-03] MEDS: cloNIDine HCL 0.1 MG TABLET PO SCH ×2 (09:37→21:24)
[2023-05-03] MEDS: PRENATAL VITAMINS W/ FOLIC ACID TABLET (FP) PO SCH (09:37)
[2023-05-03] MEDS: NICOTINE 21 MG/24 HOURS TOPICAL PATCH TD PRN (09:39)
[2023-05-03] MEDS: METHOCARBAMOL 500 MG TABLET PO PRN ×2 (12:14→21:25)
[2023-05-03] MEDS: THIAMINE HCL 100 MG TABLET (FP) PO SCH (21:24)
[2023-05-03] MEDS: MELATONIN 5 MG TABLETS PO SCH (21:24)
[2023-05-03] MEDS: MOMETASONE FUROATE 110 MCG/IH INHALER IH SCH (21:25)
[2023-05-04] MEDS: GABAPENTIN 300 MG CAPSULE PO SCH ×3 (06:33→21:40)
[2023-05-04] MEDS: hydrOXYzine PAMOATE 25 MG CAPSULE (FP) PO PRN ×2 (06:34→21:40)
[2023-05-04] MEDS: PANTOPRAZOLE 40 MG TABLET PO SCH (06:35)
[2023-05-04] MEDS: NICOTINE POLACRILEX 2 MG GUM BUC PRN ×7 (06:37→21:43)
[2023-05-04] MEDS: PRENATAL VITAMINS W/ FOLIC ACID TABLET (FP) PO SCH (09:39)
[2023-05-04] MEDS: cloNIDine HCL 0.1 MG TABLET PO SCH ×2 (09:39→21:41)
[2023-05-04] MEDS: NICOTINE 21 MG/24 HOURS TOPICAL PATCH TD PRN (09:39)
[2023-05-04] MEDS: IBUPROFEN 400 MG TABLET (FP) PO PRN (19:36)
[2023-05-04] MEDS: SUVOREXANT 15 MG TABLET PO PRN (21:39)
[2023-05-04] MEDS: METHOCARBAMOL 500 MG TABLET PO PRN (21:41)
[2023-05-04] MEDS: THIAMINE HCL 100 MG TABLET (FP) PO SCH (21:41)
[2023-05-04] MEDS: MELATONIN 5 MG TABLETS PO SCH (21:41)
[2023-05-04] MEDS: MOMETASONE FUROATE 110 MCG/IH INHALER IH SCH (22:03)
[2023-05-05] MEDS: GABAPENTIN 300 MG CAPSULE PO SCH ×3 (06:13→21:24)
[2023-05-05] MEDS: PANTOPRAZOLE 40 MG TABLET PO SCH (06:13)
[2023-05-05] MEDS: hydrOXYzine PAMOATE 25 MG CAPSULE (FP) PO PRN ×2 (06:13→21:25)
[2023-05-05] MEDS: NICOTINE POLACRILEX 2 MG GUM BUC PRN ×4 (06:15→15:40)
[2023-05-05] MEDS: METHOCARBAMOL 500 MG TABLET PO PRN ×2 (06:15→21:25)
[2023-05-05] MEDS: cloNIDine HCL 0.1 MG TABLET PO SCH ×2 (09:19→21:25)
[2023-05-05] MEDS: PRENATAL VITAMINS W/ FOLIC ACID TABLET (FP) PO SCH (09:19)
[2023-05-05] MEDS: NICOTINE 21 MG/24 HOURS TOPICAL PATCH TD PRN (09:21)
[2023-05-05] MEDS: IBUPROFEN 600 MG TABLET (FP) PO PRN ×2 (13:33→21:27)
[2023-05-05] MEDS: MAG HYDROX/AL HYDROX/SIMETH 30 ML UNIT-DOSE CUP PO PRN (16:22)
[2023-05-05] MEDS: MELATONIN 5 MG TABLETS PO SCH (21:24)
[2023-05-05] MEDS: THIAMINE HCL 100 MG TABLET (FP) PO SCH (21:24)
[2023-05-05] MEDS: MOMETASONE FUROATE 110 MCG/IH INHALER IH SCH (21:25)
[2023-05-05] MEDS: SUVOREXANT 15 MG TABLET PO PRN (21:25)
[2023-05-06] MEDS: PANTOPRAZOLE 40 MG TABLET PO SCH (06:29)
[2023-05-06] MEDS: GABAPENTIN 300 MG CAPSULE PO SCH ×3 (06:29→21:20)
[2023-05-06] MEDS: METHOCARBAMOL 500 MG TABLET PO PRN ×2 (06:29→21:20)
[2023-05-06] MEDS: hydrOXYzine PAMOATE 25 MG CAPSULE (FP) PO PRN ×2 (06:29→21:20)
[2023-05-06] MEDS: NICOTINE POLACRILEX 2 MG GUM BUC PRN ×5 (06:32→21:22)
[2023-05-06] MEDS: cloNIDine HCL 0.1 MG TABLET PO SCH ×2 (09:31→21:20)
[2023-05-06] MEDS: NICOTINE 21 MG/24 HOURS TOPICAL PATCH TD PRN (09:31)
[2023-05-06] MEDS: PRENATAL VITAMINS W/ FOLIC ACID TABLET (FP) PO SCH (09:31)
[2023-05-06] MEDS: MELATONIN 5 MG TABLETS PO SCH (21:20)
[2023-05-06] MEDS: MOMETASONE FUROATE 110 MCG/IH INHALER IH SCH (21:20)
[2023-05-06] MEDS: THIAMINE HCL 100 MG TABLET (FP) PO SCH (21:20)
[2023-05-06] MEDS: SUVOREXANT 15 MG TABLET PO PRN (21:21)
[2023-05-07] MEDS: PANTOPRAZOLE 40 MG TABLET PO SCH (06:30)
[2023-05-07] MEDS: GABAPENTIN 300 MG CAPSULE PO SCH ×3 (06:30→21:24)
[2023-05-07] MEDS: hydrOXYzine PAMOATE 25 MG CAPSULE (FP) PO PRN ×2 (06:31→21:24)
[2023-05-07] MEDS: METHOCARBAMOL 500 MG TABLET PO PRN ×2 (06:31→21:24)
[2023-05-07] MEDS: PRENATAL VITAMINS W/ FOLIC ACID TABLET (FP) PO SCH (10:04)
[2023-05-07] MEDS: cloNIDine HCL 0.1 MG TABLET PO SCH ×2 (10:04→21:24)
[2023-05-07] MEDS: NICOTINE 21 MG/24 HOURS TOPICAL PATCH TD PRN (10:06)
[2023-05-07] MEDS: NICOTINE POLACRILEX 2 MG GUM BUC PRN ×4 (10:06→21:25)
[2023-05-07] MEDS: MELATONIN 5 MG TABLETS PO SCH (21:24)
[2023-05-07] MEDS: THIAMINE HCL 100 MG TABLET (FP) PO SCH (21:24)
[2023-05-07] MEDS: MOMETASONE FUROATE 110 MCG/IH INHALER IH SCH (21:26)
[2023-05-08] MEDS: METHOCARBAMOL 500 MG TABLET PO PRN ×2 (06:20→21:40)
[2023-05-08] MEDS: NICOTINE POLACRILEX 2 MG GUM BUC PRN ×5 (06:20→19:38)
[2023-05-08] MEDS: PANTOPRAZOLE 40 MG TABLET PO SCH (06:20)
[2023-05-08] MEDS: GABAPENTIN 300 MG CAPSULE PO SCH ×3 (06:20→21:37)
[2023-05-08] MEDS: hydrOXYzine PAMOATE 25 MG CAPSULE (FP) PO PRN (06:20)
[2023-05-08] MEDS: PRENATAL VITAMINS W/ FOLIC ACID TABLET (FP) PO SCH (09:28)
[2023-05-08] MEDS: cloNIDine HCL 0.1 MG TABLET PO SCH ×2 (09:28→21:37)
[2023-05-08] MEDS: NICOTINE 21 MG/24 HOURS TOPICAL PATCH TD PRN (09:29)
[2023-05-08] MEDS: THIAMINE HCL 100 MG TABLET (FP) PO SCH (21:37)
[2023-05-08] MEDS: MELATONIN 5 MG TABLETS PO SCH (21:37)
[2023-05-08] MEDS: MOMETASONE FUROATE 110 MCG/IH INHALER IH SCH (21:38)
[2023-05-08] MEDS: SUVOREXANT 15 MG TABLET PO PRN (21:40)
[2023-05-09] MEDS: GABAPENTIN 300 MG CAPSULE PO SCH ×3 (06:29→21:23)
[2023-05-09] MEDS: METHOCARBAMOL 500 MG TABLET PO PRN ×2 (06:29→21:23)
[2023-05-09] MEDS: NICOTINE POLACRILEX 2 MG GUM BUC PRN ×5 (06:29→19:32)
[2023-05-09] MEDS: hydrOXYzine PAMOATE 25 MG CAPSULE (FP) PO PRN ×2 (06:29→21:23)
[2023-05-09] MEDS: PANTOPRAZOLE 40 MG TABLET PO SCH (06:46)
[2023-05-09] MEDS: cloNIDine HCL 0.1 MG TABLET PO SCH ×2 (09:46→21:22)
[2023-05-09] MEDS: PRENATAL VITAMINS W/ FOLIC ACID TABLET (FP) PO SCH (09:46)
[2023-05-09] MEDS: NICOTINE 21 MG/24 HOURS TOPICAL PATCH TD PRN (09:47)
[2023-05-09] MEDS: MOMETASONE FUROATE 110 MCG/IH INHALER IH SCH (21:21)
[2023-05-09] MEDS: THIAMINE HCL 100 MG TABLET (FP) PO SCH (21:22)
[2023-05-09] MEDS: SUVOREXANT 15 MG TABLET PO PRN (21:23)
[2023-05-09] MEDS: MELATONIN 5 MG TABLETS PO SCH (21:23)
[2023-05-10] MEDS: hydrOXYzine PAMOATE 25 MG CAPSULE (FP) PO PRN (06:38)
[2023-05-10] MEDS: PANTOPRAZOLE 40 MG TABLET PO SCH (06:38)
[2023-05-10] MEDS: GABAPENTIN 300 MG CAPSULE PO SCH ×3 (06:38→21:14)
[2023-05-10] MEDS: METHOCARBAMOL 500 MG TABLET PO PRN ×2 (06:38→21:15)
[2023-05-10] MEDS: NICOTINE POLACRILEX 2 MG GUM BUC PRN ×5 (06:40→20:08)
[2023-05-10] MEDS: cloNIDine HCL 0.1 MG TABLET PO SCH ×2 (09:41→21:14)
[2023-05-10] MEDS: PRENATAL VITAMINS W/ FOLIC ACID TABLET (FP) PO SCH (09:41)
[2023-05-10] MEDS: NICOTINE 21 MG/24 HOURS TOPICAL PATCH TD PRN (09:42)
[2023-05-10] MEDS: MELATONIN 5 MG TABLETS PO SCH (21:14)
[2023-05-10] MEDS: MOMETASONE FUROATE 110 MCG/IH INHALER IH SCH (21:14)
[2023-05-10] MEDS: THIAMINE HCL 100 MG TABLET (FP) PO SCH (21:14)
[2023-05-10] MEDS: SUVOREXANT 15 MG TABLET PO PRN (21:15)
[2023-05-11] MEDS: GABAPENTIN 300 MG CAPSULE PO SCH ×3 (06:10→21:18)
[2023-05-11] MEDS: hydrOXYzine PAMOATE 25 MG CAPSULE (FP) PO PRN ×2 (06:10→21:18)
[2023-05-11] MEDS: PANTOPRAZOLE 40 MG TABLET PO SCH (06:10)
[2023-05-11] MEDS: METHOCARBAMOL 500 MG TABLET PO PRN ×2 (06:10→21:19)
[2023-05-11] MEDS: NICOTINE POLACRILEX 2 MG GUM BUC PRN ×5 (06:12→19:42)
[2023-05-11] MEDS: cloNIDine HCL 0.1 MG TABLET PO SCH ×2 (10:08→21:18)
[2023-05-11] MEDS: NICOTINE 21 MG/24 HOURS TOPICAL PATCH TD PRN (10:09)
[2023-05-11] MEDS: PRENATAL VITAMINS W/ FOLIC ACID TABLET (FP) PO SCH (10:09)
[2023-05-11] MEDS: MOMETASONE FUROATE 110 MCG/IH INHALER IH SCH (21:18)
[2023-05-11] MEDS: THIAMINE HCL 100 MG TABLET (FP) PO SCH (21:18)
[2023-05-11] MEDS: MELATONIN 5 MG TABLETS PO SCH (21:18)
[2023-05-11] MEDS: SUVOREXANT 15 MG TABLET PO PRN (21:19)
[2023-05-12] MEDS: hydrOXYzine PAMOATE 25 MG CAPSULE (FP) PO PRN ×2 (06:12→21:26)
[2023-05-12] MEDS: PANTOPRAZOLE 40 MG TABLET PO SCH (06:12)
[2023-05-12] MEDS: GABAPENTIN 300 MG CAPSULE PO SCH ×3 (06:12→21:26)
[2023-05-12] MEDS: METHOCARBAMOL 500 MG TABLET PO PRN ×2 (06:12→21:25)
[2023-05-12] MEDS: NICOTINE POLACRILEX 2 MG GUM BUC PRN ×7 (06:14→21:27)
[2023-05-12] MEDS: PRENATAL VITAMINS W/ FOLIC ACID TABLET (FP) PO SCH (09:38)
[2023-05-12] MEDS: NICOTINE 21 MG/24 HOURS TOPICAL PATCH TD PRN (09:38)
[2023-05-12] MEDS: cloNIDine HCL 0.1 MG TABLET PO SCH ×2 (09:38→21:25)
[2023-05-12] MEDS: MOMETASONE FUROATE 110 MCG/IH INHALER IH SCH (21:25)
[2023-05-12] MEDS: MELATONIN 5 MG TABLETS PO SCH (21:25)
[2023-05-12] MEDS: THIAMINE HCL 100 MG TABLET (FP) PO SCH (21:25)
[2023-05-12] MEDS: SUVOREXANT 15 MG TABLET PO PRN (21:26)
[2023-05-13] MEDS: GABAPENTIN 300 MG CAPSULE PO SCH ×3 (06:19→21:29)
[2023-05-13] MEDS: hydrOXYzine PAMOATE 25 MG CAPSULE (FP) PO PRN ×2 (06:19→21:29)
[2023-05-13] MEDS: PANTOPRAZOLE 40 MG TABLET PO SCH (06:19)
[2023-05-13] MEDS: NICOTINE POLACRILEX 2 MG GUM BUC PRN ×5 (06:20→19:39)
[2023-05-13] MEDS: METHOCARBAMOL 500 MG TABLET PO PRN (06:20)
[2023-05-13] MEDS: cloNIDine HCL 0.1 MG TABLET PO SCH ×2 (10:09→21:30)
[2023-05-13] MEDS: PRENATAL VITAMINS W/ FOLIC ACID TABLET (FP) PO SCH (10:09)
[2023-05-13] MEDS: NICOTINE 21 MG/24 HOURS TOPICAL PATCH TD PRN (10:11)
[2023-05-13] MEDS: MOMETASONE FUROATE 110 MCG/IH INHALER IH SCH (21:29)
[2023-05-13] MEDS: MELATONIN 5 MG TABLETS PO SCH (21:29)
[2023-05-13] MEDS: THIAMINE HCL 100 MG TABLET (FP) PO SCH (21:29)
[2023-05-13] MEDS: SUVOREXANT 15 MG TABLET PO PRN (21:30)
[2023-05-14] MEDS: METHOCARBAMOL 500 MG TABLET PO PRN ×2 (06:27→21:24)
[2023-05-14] MEDS: GABAPENTIN 300 MG CAPSULE PO SCH ×3 (06:27→21:24)
[2023-05-14] MEDS: PANTOPRAZOLE 40 MG TABLET PO SCH (06:28)
[2023-05-14] MEDS: hydrOXYzine PAMOATE 25 MG CAPSULE (FP) PO PRN ×2 (06:28→21:24)
[2023-05-14] MEDS: NICOTINE POLACRILEX 2 MG GUM BUC PRN ×5 (06:29→19:51)
[2023-05-14] MEDS: PRENATAL VITAMINS W/ FOLIC ACID TABLET (FP) PO SCH (09:25)
[2023-05-14] MEDS: cloNIDine HCL 0.1 MG TABLET PO SCH ×2 (09:25→21:24)
[2023-05-14] MEDS: NICOTINE 21 MG/24 HOURS TOPICAL PATCH TD PRN (09:26)
[2023-05-14] MEDS: SUVOREXANT 15 MG TABLET PO PRN (21:23)
[2023-05-14] MEDS: THIAMINE HCL 100 MG TABLET (FP) PO SCH (21:24)
[2023-05-14] MEDS: MELATONIN 5 MG TABLETS PO SCH (21:24)
[2023-05-14] MEDS: MOMETASONE FUROATE 110 MCG/IH INHALER IH SCH (21:25)
[2023-05-15] MEDS: METHOCARBAMOL 500 MG TABLET PO PRN ×2 (06:40→21:32)
[2023-05-15] MEDS: PANTOPRAZOLE 40 MG TABLET PO SCH (06:40)
[2023-05-15] MEDS: GABAPENTIN 300 MG CAPSULE PO SCH ×3 (06:40→21:32)
[2023-05-15] MEDS: hydrOXYzine PAMOATE 25 MG CAPSULE (FP) PO PRN ×2 (06:43→21:32)
[2023-05-15] MEDS: NICOTINE 21 MG/24 HOURS TOPICAL PATCH TD PRN (09:02)
[2023-05-15] MEDS: NICOTINE POLACRILEX 2 MG GUM BUC PRN ×4 (09:02→17:35)
[2023-05-15] MEDS: PRENATAL VITAMINS W/ FOLIC ACID TABLET (FP) PO SCH (09:02)
[2023-05-15] MEDS: cloNIDine HCL 0.1 MG TABLET PO SCH ×2 (09:02→21:32)
[2023-05-15] MEDS: MELATONIN 5 MG TABLETS PO SCH (21:32)
[2023-05-15] MEDS: THIAMINE HCL 100 MG TABLET (FP) PO SCH (21:32)
[2023-05-15] MEDS: MOMETASONE FUROATE 110 MCG/IH INHALER IH SCH (21:33)
[2023-05-15] MEDS: SUVOREXANT 15 MG TABLET PO PRN (21:33)
[2023-05-16] MEDS: NICOTINE POLACRILEX 2 MG GUM BUC PRN ×7 (06:17→21:37)
[2023-05-16] MEDS: GABAPENTIN 300 MG CAPSULE PO SCH ×3 (06:17→21:32)
[2023-05-16] MEDS: PANTOPRAZOLE 40 MG TABLET PO SCH (06:17)
[2023-05-16] MEDS: METHOCARBAMOL 500 MG TABLET PO PRN ×2 (07:25→21:35)
[2023-05-16] MEDS: hydrOXYzine PAMOATE 25 MG CAPSULE (FP) PO PRN ×2 (07:25→21:35)
[2023-05-16] MEDS: cloNIDine HCL 0.1 MG TABLET PO SCH ×2 (09:43→21:33)
[2023-05-16] MEDS: PRENATAL VITAMINS W/ FOLIC ACID TABLET (FP) PO SCH (09:43)
[2023-05-16] MEDS: NICOTINE 21 MG/24 HOURS TOPICAL PATCH TD PRN (09:45)
[2023-05-16] MEDS: MOMETASONE FUROATE 110 MCG/IH INHALER IH SCH (21:30)
[2023-05-16] MEDS: THIAMINE HCL 100 MG TABLET (FP) PO SCH (21:32)
[2023-05-16] MEDS: SUVOREXANT 15 MG TABLET PO PRN (21:35)
[2023-05-17] MEDS: METHOCARBAMOL 500 MG TABLET PO PRN ×2 (06:33→21:22)
[2023-05-17] MEDS: hydrOXYzine PAMOATE 25 MG CAPSULE (FP) PO PRN ×2 (06:33→21:22)
[2023-05-17] MEDS: PANTOPRAZOLE 40 MG TABLET PO SCH (06:33)
[2023-05-17] MEDS: GABAPENTIN 300 MG CAPSULE PO SCH ×3 (06:33→21:21)
[2023-05-17] MEDS: cloNIDine HCL 0.1 MG TABLET PO SCH ×2 (10:02→21:22)
[2023-05-17] MEDS: PRENATAL VITAMINS W/ FOLIC ACID TABLET (FP) PO SCH (10:02)
[2023-05-17] MEDS: NICOTINE 21 MG/24 HOURS TOPICAL PATCH TD PRN (10:03)
[2023-05-17] MEDS: NICOTINE POLACRILEX 2 MG GUM BUC PRN ×3 (10:03→15:32)
[2023-05-17] MEDS: THIAMINE HCL 100 MG TABLET (FP) PO SCH (21:21)
[2023-05-17] MEDS: SUVOREXANT 15 MG TABLET PO PRN (21:22)
[2023-05-17] MEDS: MOMETASONE FUROATE 110 MCG/IH INHALER IH SCH (21:22)
[2023-05-18] MEDS: PANTOPRAZOLE 40 MG TABLET PO SCH (06:24)
[2023-05-18] MEDS: GABAPENTIN 300 MG CAPSULE PO SCH ×3 (06:24→21:18)
[2023-05-18] MEDS: hydrOXYzine PAMOATE 25 MG CAPSULE (FP) PO PRN ×2 (06:24→21:18)
[2023-05-18] MEDS: METHOCARBAMOL 500 MG TABLET PO PRN ×2 (06:24→21:18)
[2023-05-18] MEDS: NICOTINE POLACRILEX 2 MG GUM BUC PRN ×4 (06:25→21:21)
[2023-05-18] MEDS: PRENATAL VITAMINS W/ FOLIC ACID TABLET (FP) PO SCH (10:09)
[2023-05-18] MEDS: cloNIDine HCL 0.1 MG TABLET PO SCH ×2 (10:09→21:17)
[2023-05-18] MEDS: NICOTINE 21 MG/24 HOURS TOPICAL PATCH TD PRN (10:10)
[2023-05-18] MEDS: THIAMINE HCL 100 MG TABLET (FP) PO SCH (21:17)
[2023-05-18] MEDS: SUVOREXANT 15 MG TABLET PO PRN (21:17)
[2023-05-18] MEDS: MOMETASONE FUROATE 110 MCG/IH INHALER IH SCH (22:17)
[2023-05-19] MEDS: hydrOXYzine PAMOATE 25 MG CAPSULE (FP) PO PRN ×2 (06:24→21:26)
[2023-05-19] MEDS: GABAPENTIN 300 MG CAPSULE PO SCH ×3 (06:24→21:26)
[2023-05-19] MEDS: METHOCARBAMOL 500 MG TABLET PO PRN ×2 (06:25→21:26)
[2023-05-19] MEDS: PANTOPRAZOLE 40 MG TABLET PO SCH (06:26)
[2023-05-19] MEDS: NICOTINE POLACRILEX 2 MG GUM BUC PRN ×4 (06:27→14:58)
[2023-05-19] MEDS: cloNIDine HCL 0.1 MG TABLET PO SCH ×2 (09:53→21:26)
[2023-05-19] MEDS: PRENATAL VITAMINS W/ FOLIC ACID TABLET (FP) PO SCH (09:53)
[2023-05-19] MEDS: NICOTINE 21 MG/24 HOURS TOPICAL PATCH TD PRN (09:54)
[2023-05-19] MEDS: THIAMINE HCL 100 MG TABLET (FP) PO SCH (21:25)
[2023-05-19] MEDS: MOMETASONE FUROATE 110 MCG/IH INHALER IH SCH (21:26)
[2023-05-19] MEDS ORDERED: SUVOREXANT 15 MG TABLET PO PRN (22:00)
[2023-05-20] MEDS: hydrOXYzine PAMOATE 25 MG CAPSULE (FP) PO PRN (06:12)
[2023-05-20] MEDS: GABAPENTIN 300 MG CAPSULE PO SCH (06:12)
[2023-05-20] MEDS: PANTOPRAZOLE 40 MG TABLET PO SCH (06:12)
[2023-05-20] MEDS: METHOCARBAMOL 500 MG TABLET PO PRN (06:12)
[2023-05-20] MEDS: NICOTINE POLACRILEX 2 MG GUM BUC PRN ×2 (06:13→09:04)
[2023-05-20] MEDS: PRENATAL VITAMINS W/ FOLIC ACID TABLET (FP) PO SCH (09:02)
[2023-05-20] MEDS: cloNIDine HCL 0.1 MG TABLET PO SCH (09:02)
[2023-05-20] MEDS: NICOTINE 21 MG/24 HOURS TOPICAL PATCH TD PRN (09:03)
[2023-05-20 10:53] VITALS: BP 132/93; PULSE 67; RESP 15; TEMP 96.8
== END 2023-05-20 09:06 | disposition home or self-care (01) | DRG 772 ==
LOC: YASAS 15:10 → Y3E 15:12
PROVIDERS: ADMIT Allergy & Immunology; ATTEND Psychiatry & Neurology Pain Medicine
PROC: HZ42ZZZ Group Counseling for Substance Abuse Treatment, Cognitive-Behavioral (ICD-10-PCS; principal; 2023-04-24)
DX: F13.20 Sedative, hypnotic or anxiolytic dependence, uncomplicated (principal); F11.20 Opioid dependence, uncomplicated; F17.210 Nicotine dependence, cigarettes, uncomplicated; F19.280 Other psychoactive substance dependence with psychoactive substance-induced anxiety disorder; F19.282 Other psychoactive substance dependence with psychoactive substance-induced sleep disorder; F41.1 Generalized anxiety disorder; I10 Essential (primary) hypertension; Z86.59 Personal history of other mental and behavioral disorders
CPT/HCPCS: 36415; 83036; 86803

== ENCOUNTER 2023-08-23 17:26 | Inpatient (IN) | payer OTHER ==
[2023-08-23 21:11] VITALS: BMI 27.8
[2023-08-23] MEDS ORDERED: ALBUTEROL SO4 HFA INHALER IH PRN (22:08)
[2023-08-23] MEDS ORDERED: NICOTINE POLACRILEX 4 MG GUM BUC PRN (22:08)
[2023-08-23] MEDS ORDERED: ACETAMINOPHEN 325 MG TABLET (FP) PO PRN (22:32)
[2023-08-23] MEDS ORDERED: BISMUTH SUBSALICYLATE 524 MG/30 ML PO PRN (22:32)
[2023-08-23] MEDS ORDERED: NALOXONE HCL 0.4 MG/ML VIAL IM PRN (22:32)
[2023-08-23] MEDS ORDERED: NALOXONE HCL (KLOXXADO) 8 MG SPRAY NS PRN (22:32)
[2023-08-23] MEDS ORDERED: BENZONATATE 200 MG CAPSULE PO PRN (22:32)
[2023-08-23] MEDS ORDERED: MAGNESIUM HYDROX 2400MG/30ML ORAL SUSPENSION 30 ML CUP PO PRN (22:32)
[2023-08-23] MEDS ORDERED: POLYETHYLENE GLYCOL (HEALTHYLAX) 3350 17 GM PACKET PO PRN (22:32)
[2023-08-23] MEDS ORDERED: IBUPROFEN 400 MG TABLET (FP) PO PRN (22:32)
[2023-08-23] MEDS ORDERED: IBUPROFEN 600 MG TABLET (FP) PO PRN (22:32)
[2023-08-23] MEDS ORDERED: BENZOCAINE/MENTHOL (CHLORASEPTIC ) LOZENGE MM PRN (22:32)
[2023-08-23] MEDS ORDERED: LOPERAMIDE HCL 2 MG CAPSULE PO PRN (22:32)
[2023-08-23] MEDS ORDERED: DICYCLOMINE HCL 10 MG CAPSULE PO PRN (22:32)
[2023-08-23] MEDS ORDERED: MAG HYDROX/AL HYDROX/SIMETH 30 ML UNIT-DOSE CUP PO PRN (22:32)
[2023-08-23] MEDS ORDERED: guaiFENesin 600 MG TABLET.ER (FP) PO PRN (22:32)
[2023-08-23] MEDS ORDERED: cloNIDine HCL 0.1 MG TABLET ONE (22:45)
[2023-08-23] MEDS ORDERED: diazePAM 5 MG TABLET ONE (22:45)
[2023-08-23] MEDS: cloNIDine HCL 0.1 MG TABLET PO SCH (22:47)
[2023-08-23] MEDS: diazePAM 5 MG TABLET PO SCH (22:47)
[2023-08-24] MEDS: diazePAM 5 MG TABLET PO PRN (01:01)
[2023-08-24] MEDS: METHOCARBAMOL 500 MG TABLET PO PRN (01:01)
[2023-08-24] MEDS: PANTOPRAZOLE 40 MG TABLET PO SCH (06:37)
[2023-08-24] MEDS: ONDANSETRON *ODT* 4 MG TABLET SL PRN (06:40)
[2023-08-24] MEDS: hydrOXYzine PAMOATE 25 MG CAPSULE (FP) PO PRN (06:40)
[2023-08-24] MEDS ORDERED: methaDONE HCL 10 MG TABLET PO SCH ×2 (08:45)
[2023-08-24] MEDS: PRENATAL VITAMINS W/ FOLIC ACID TABLET (FP) PO SCH (10:19)
[2023-08-24 13:03] LABS: HEMATOCRIT 45.1 % (35.4-49); HEMOGLOBIN 15.1 GM/dL (11.7-16.9); MCH 26.1 pg (25.7-33.7); MCHC 33.4 g/dl (32.0-35.9); PLATELET COUNT 377 10^3/uL (134-434); RBC 5.78 M/mm3 (4.00-5.60); RDW 15.9 % (11.9-15.9); WHITE BLOOD COUNT 5.5 K/mm3 (4.0-10.0)
[2023-08-24 13:04] LABS: POTASSIUM 4.8 mmol/L (3.5-5.1)
[2023-08-24] MEDS: GABAPENTIN 300 MG CAPSULE PO SCH (13:06)
[2023-08-24 13:18] LABS: CALCIUM 9.6 mg/dL (8.5-10.1)
[2023-08-24 13:19] LABS: ALBUMIN 4.3 g/dl (3.4-5.0)
[2023-08-24 13:20] LABS: BLOOD UREA NITROGEN 12.2 mg/dL (7-18)
[2023-08-24 13:23] LABS: CREATININE 1.1 mg/dL (0.55-1.3)
[2023-08-24 13:24] LABS: BILIRUBIN,TOTAL 0.7 mg/dL (0.2-1); TOT PROT 8.2 g/dl (6.4-8.2)
[2023-08-24] MEDS: THIAMINE HCL 100 MG TABLET (FP) PO SCH (22:08)
[2023-08-24] MEDS: MELATONIN 5 MG TABLETS PO SCH (22:08)
[2023-08-25] MEDS: diazePAM 5 MG TABLET PO SCH (05:51)
[2023-08-25] MEDS ORDERED: methaDONE HCL 10 MG TABLET PO SCH (06:00)
[2023-08-25] MEDS: GABAPENTIN 400 MG CAPSULE PO SCH (13:49)
[2023-08-26] MEDS: diazePAM 5 MG TABLET PO SCH (05:29)
[2023-08-26] MEDS: GABAPENTIN 300 MG CAPSULE PO SCH (21:29)
[2023-08-26] MEDS ORDERED: GABAPENTIN 300 MG CAPSULE PO SCH (22:00)
[2023-08-27] MEDS: diazePAM 5 MG TABLET PO ONE ×2 (05:48→17:23)
[2023-08-28] MEDS: diazePAM 5 MG TABLET PO ONE (05:39)
[2023-08-28 09:13] VITALS: BP 150/81; PULSE 76; RESP 20; TEMP 97.6
== END 2023-08-28 09:26 | disposition home or self-care (01) | DRG 773 ==
LOC: YASAS 17:26 → Y3N 23:04
PROVIDERS: ADMIT Allergy & Immunology; ATTEND Surgery
PROC: HZ2ZZZZ Detoxification Services for Substance Abuse Treatment (ICD-10-PCS; principal; 2023-08-23)
DX: F13.230 Sedative, hypnotic or anxiolytic dependence with withdrawal, uncomplicated (principal); F11.20 Opioid dependence, uncomplicated; F17.210 Nicotine dependence, cigarettes, uncomplicated; F41.1 Generalized anxiety disorder; F90.9 Attention-deficit hyperactivity disorder, unspecified type; I10 Essential (primary) hypertension; J45.909 Unspecified asthma, uncomplicated; K21.9 Gastro-esophageal reflux disease without esophagitis
CPT/HCPCS: 36415; 80053; 80305; 85027; 86780; 87811; Q0162

== ENCOUNTER 2024-01-15 11:50 | Inpatient (IN) | payer OTHER ==
[2024-01-15 12:11] VITALS: BMI 31.9
[2024-01-15] MEDS ORDERED: ACETAMINOPHEN 325 MG TABLET (FP) PO PRN (13:09)
[2024-01-15] MEDS ORDERED: MAGNESIUM HYDROX 2400MG/30ML ORAL SUSPENSION 30 ML CUP PO PRN (13:09)
[2024-01-15] MEDS ORDERED: LOPERAMIDE HCL 2 MG CAPSULE PO PRN (13:09)
[2024-01-15] MEDS ORDERED: ONDANSETRON *ODT* 4 MG TABLET SL PRN (13:09)
[2024-01-15] MEDS ORDERED: guaiFENesin 600 MG TABLET.ER (FP) PO PRN (13:09)
[2024-01-15] MEDS ORDERED: IBUPROFEN 600 MG TABLET (FP) PO PRN (13:09)
[2024-01-15] MEDS ORDERED: NALOXONE HCL 0.4 MG/ML VIAL IM PRN (13:09)
[2024-01-15] MEDS ORDERED: MAG HYDROX/AL HYDROX/SIMETH 30 ML UNIT-DOSE CUP PO PRN (13:09)
[2024-01-15] MEDS ORDERED: BENZONATATE 200 MG CAPSULE PO PRN (13:09)
[2024-01-15] MEDS ORDERED: NICOTINE POLACRILEX 4 MG GUM BUC PRN (13:09)
[2024-01-15] MEDS ORDERED: DICYCLOMINE HCL 10 MG CAPSULE PO PRN (13:09)
[2024-01-15] MEDS ORDERED: BENZOCAINE/MENTHOL (CHLORASEPTIC ) LOZENGE MM PRN (13:09)
[2024-01-15] MEDS ORDERED: POLYETHYLENE GLYCOL (HEALTHYLAX) 3350 17 GM PACKET PO PRN (13:09)
[2024-01-15] MEDS ORDERED: NALOXONE (NARCAN) HCL 4 MG/0.1 ML SPRAY NS PRN (13:09)
[2024-01-15] MEDS ORDERED: BISMUTH SUBSALICYLATE 524 MG/30 ML PO PRN (13:09)
[2024-01-15] MEDS ORDERED: IBUPROFEN 400 MG TABLET (FP) PO PRN (13:09)
[2024-01-15] MEDS ORDERED: ALBUTEROL SO4 HFA INHALER IH PRN (13:13)
[2024-01-15] MEDS ORDERED: diazePAM 5 MG TABLET ONE (13:42)
[2024-01-15] MEDS: diazePAM 5 MG TABLET PO ONE (13:44)
[2024-01-15] MEDS: NICOTINE 21 MG/24 HOURS TOPICAL PATCH TD SCH (14:09)
[2024-01-15] MEDS: methaDONE HCL 10 MG TABLET PO ONE (14:11)
[2024-01-15] MEDS: hydrOXYzine PAMOATE 25 MG CAPSULE (FP) PO PRN (15:23)
[2024-01-15] MEDS: METHOCARBAMOL 500 MG TABLET PO PRN (15:23)
[2024-01-15] MEDS: diazePAM 5 MG TABLET PO SCH (17:11)
[2024-01-15] MEDS: diazePAM 5 MG TABLET PO PRN (19:51)
[2024-01-15] MEDS ORDERED: PATIENT'S OWN MEDICATION (NON-FORMULARY) (Gabapentin [Gabapentin] 800 MG Tablet) PO SCH (22:00)
[2024-01-15] MEDS: SUVOREXANT 10 MG TABLET PO PRN (22:11)
[2024-01-15] MEDS: cloNIDine HCL 0.1 MG TABLET PO SCH (22:12)
[2024-01-15] MEDS: MELATONIN 5 MG TABLETS PO SCH (22:12)
[2024-01-15] MEDS: THIAMINE 100 MG TABLET PO SCH (22:12)
[2024-01-15] MEDS: GABAPENTIN 400 MG CAPSULE PO SCH (22:13)
[2024-01-15] MEDS: BUDESONIDE/FORMETEROL FUMARATE 80/4.5 mcg INHALER IH SCH (22:13)
[2024-01-16] MEDS ORDERED: methaDONE HCL 40 MG DISPERSABLE TABLET PO SCH (06:00)
[2024-01-16] MEDS ORDERED: ESCITALOPRAM OXALATE 10 MG TABLET ONE (09:35)
[2024-01-16] MEDS: PRENATAL VITAMINS W/ FOLIC ACID TABLET (FP) PO SCH (09:37)
[2024-01-16] MEDS: ESCITALOPRAM OXALATE 20 MG TABLET PO SCH (09:37)
[2024-01-16] MEDS ORDERED: cloNIDine HCL 0.1 MG TABLET PO SCH (13:24)
[2024-01-16] MEDS: cloNIDine HCL 0.1 MG TABLET PO SCH (21:05)
[2024-01-17] MEDS: diazePAM 5 MG TABLET PO SCH (05:30)
[2024-01-17] MEDS ORDERED: ESCITALOPRAM OXALATE 10 MG TABLET ONE (09:57)
[2024-01-18] MEDS: diazePAM 5 MG TABLET PO SCH (05:20)
[2024-01-18] MEDS ORDERED: ESCITALOPRAM OXALATE 10 MG TABLET ONE (09:50)
[2024-01-19] MEDS: diazePAM 5 MG TABLET PO ONE (05:41)
[2024-01-19] MEDS ORDERED: ESCITALOPRAM OXALATE 10 MG TABLET ONE (09:18)
[2024-01-19] MEDS: FAMOTIDINE 20 MG TABLET PO SCH (10:40)
[2024-01-19] MEDS: diazePAM 5 MG TABLET PO PRN (16:57)
[2024-01-20] MEDS ORDERED: ESCITALOPRAM OXALATE 10 MG TABLET ONE (09:58)
[2024-01-20 13:20] VITALS: BP 130/69; PULSE 76; RESP 18; TEMP 97.7
== END 2024-01-20 14:36 | disposition other institution (70) | DRG 773 ==
LOC: YASAS 11:50 → Y6N 13:30
PROVIDERS: ADMIT Allergy & Immunology; ATTEND Surgery
PROC: HZ2ZZZZ Detoxification Services for Substance Abuse Treatment (ICD-10-PCS; principal; 2024-01-15)
DX: F10.230 Alcohol dependence with withdrawal, uncomplicated (principal); F11.20 Opioid dependence, uncomplicated; F13.230 Sedative, hypnotic or anxiolytic dependence with withdrawal, uncomplicated; F17.210 Nicotine dependence, cigarettes, uncomplicated; F41.9 Anxiety disorder, unspecified; F19.982 Other psychoactive substance use, unspecified with psychoactive substance-induced sleep disorder; F19.94 Other psychoactive substance use, unspecified with psychoactive substance-induced mood disorder; I10 Essential (primary) hypertension; J45.20 Mild intermittent asthma, uncomplicated; K21.9 Gastro-esophageal reflux disease without esophagitis; R00.0 Tachycardia, unspecified; Z59.01 Sheltered homelessness
CPT/HCPCS: 80305; 80307; 87811; 93005; 93010

== ENCOUNTER 2024-01-20 14:44 | Inpatient (IN) | payer OTHER ==
[~2024-01-20 14:44] MED LIST: ACETAMINOPHEN 325 MG TABLET (FP) PO PRN; ALBUTEROL SO4 HFA INHALER IH PRN; BENZOCAINE/MENTHOL (CHLORASEPTIC ) LOZENGE MM PRN; BENZONATATE 200 MG CAPSULE PO PRN; IBUPROFEN 400 MG TABLET (FP) PO PRN; LOPERAMIDE HCL 2 MG CAPSULE PO PRN; MAGNESIUM HYDROX 2400MG/30ML ORAL SUSPENSION 30 ML CUP PO PRN; NALOXONE (NARCAN) HCL 4 MG/0.1 ML SPRAY NS PRN; NALOXONE HCL 0.4 MG/ML VIAL IM PRN; NICOTINE POLACRILEX 4 MG GUM BUC PRN; NICOTINE POLACRILEX 4 MG LOZENGE BC PRN; POLYETHYLENE GLYCOL (HEALTHYLAX) 3350 17 GM PACKET PO PRN; guaiFENesin 600 MG TABLET.ER (FP) PO PRN
[2024-01-20] MEDS: GABAPENTIN 300 MG CAPSULE PO SCH (15:24)
[2024-01-20] MEDS: DOCUSATE SODIUM 100 MG CAPSULE (FP) PO SCH (15:27)
[2024-01-20] MEDS: FAMOTIDINE 20 MG TABLET PO SCH (15:31)
[2024-01-20] MEDS: clonazePAM 0.5 MG ODT TABLETS SL PRN (16:59)
[2024-01-20] MEDS: hydrOXYzine PAMOATE 25 MG CAPSULE (FP) PO PRN (18:32)
[2024-01-20] MEDS ORDERED: MELATONIN 5 MG TABLETS PO SCH (22:00)
[2024-01-20] MEDS ORDERED: SUVOREXANT 10 MG TABLET PO PRN (22:00)
[2024-01-20] MEDS: BUDESONIDE/FORMETEROL FUMARATE 160/4.5 mcg INHALER IH SCH (22:03)
[2024-01-20] MEDS: cloNIDine HCL 0.1 MG TABLET PO SCH (22:04)
[2024-01-20] MEDS: THIAMINE 100 MG TABLET PO SCH (22:04)
[2024-01-20] MEDS: SUVOREXANT 15 MG TABLET PO PRN (22:05)
[2024-01-20] MEDS: clonazePAM 0.5 MG ODT TABLETS SL SCH (22:06)
[2024-01-21] MEDS ORDERED: methaDONE HCL 10 MG TABLET PO SCH (06:00)
[2024-01-21] MEDS: PRENATAL VITAMINS W/ FOLIC ACID TABLET (FP) PO SCH (10:15)
[2024-01-21] MEDS: ESCITALOPRAM OXALATE 20 MG TABLET PO SCH (10:19)
[2024-01-21] MEDS: NICOTINE 21 MG/24 HOURS TOPICAL PATCH TD SCH (10:19)
[2024-01-22] MEDS: PANTOPRAZOLE 20 MG TABLET PO SCH (21:54)
[2024-01-23] MEDS: IBUPROFEN 600 MG TABLET (FP) PO PRN (07:51)
[2024-01-23] MEDS: MAG HYDROX/AL HYDROX/SIMETH 30 ML UNIT-DOSE CUP PO PRN (12:02)
[2024-01-24] MEDS: SUVOREXANT 10 MG TABLET PO ONE (21:53)
[2024-01-25] MEDS ORDERED: ESCITALOPRAM OXALATE 10 MG TABLET ONE (08:57)
[2024-01-25] MEDS ORDERED: SUVOREXANT 15 MG TABLET PO PRN (22:00)
[2024-01-25] MEDS ORDERED: SUVOREXANT 10 MG TABLET PO PRN (22:00)
[2024-01-26 09:25] VITALS: RESP 18
[2024-01-26] MEDS ORDERED: BISMUTH SUBSALICYLATE 262 MG/15 ML BTL PO PRN (09:46)
[2024-01-26] MEDS ORDERED: DICYCLOMINE HCL 10 MG CAPSULE PO PRN (09:46)
[2024-01-26] MEDS ORDERED: ESCITALOPRAM OXALATE 10 MG TABLET ONE (10:35)
[2024-01-26 13:07] VITALS: BP 140/91; PULSE 90; TEMP 97.8
== END 2024-01-26 15:14 | disposition home or self-care (01) | DRG 772 ==
LOC: YASAS 14:44 → Y3NR 14:50 → Y3W 01-24 19:25
PROVIDERS: ADMIT Allergy & Immunology; ATTEND Psychiatry & Neurology Pain Medicine
PROC: HZ42ZZZ Group Counseling for Substance Abuse Treatment, Cognitive-Behavioral (ICD-10-PCS; principal; 2024-01-20)
DX: F10.20 Alcohol dependence, uncomplicated (principal); F11.20 Opioid dependence, uncomplicated; F13.20 Sedative, hypnotic or anxiolytic dependence, uncomplicated; F17.210 Nicotine dependence, cigarettes, uncomplicated; F19.982 Other psychoactive substance use, unspecified with psychoactive substance-induced sleep disorder; F19.980 Other psychoactive substance use, unspecified with psychoactive substance-induced anxiety disorder; F41.8 Other specified anxiety disorders; I10 Essential (primary) hypertension; J45.20 Mild intermittent asthma, uncomplicated; K21.9 Gastro-esophageal reflux disease without esophagitis; Z59.01 Sheltered homelessness

== ENCOUNTER 2024-06-19 15:23 | Inpatient (IN) | payer OTHER ==
[2024-06-19 16:17] VITALS: BMI 27.1
[2024-06-19] MEDS ORDERED: POLYETHYLENE GLYCOL (HEALTHYLAX) 3350 17 GM PACKET PO PRN (16:22)
[2024-06-19] MEDS ORDERED: ACETAMINOPHEN 325 MG TABLET (FP) PO PRN (16:22)
[2024-06-19] MEDS ORDERED: IBUPROFEN 400 MG TABLET (FP) PO PRN (16:22)
[2024-06-19] MEDS ORDERED: ONDANSETRON *ODT* 4 MG TABLET SL PRN (16:22)
[2024-06-19] MEDS ORDERED: DICYCLOMINE HCL 10 MG CAPSULE PO PRN (16:22)
[2024-06-19] MEDS ORDERED: MAGNESIUM HYDROX 2400MG/30ML ORAL SUSPENSION 30 ML CUP PO PRN (16:22)
[2024-06-19] MEDS ORDERED: NALOXONE (NARCAN) HCL 4 MG/0.1 ML SPRAY NS PRN (16:22)
[2024-06-19] MEDS ORDERED: NICOTINE POLACRILEX 2 MG GUM BUC PRN (16:22)
[2024-06-19] MEDS ORDERED: guaiFENesin 600 MG TABLET.ER (FP) PO PRN (16:22)
[2024-06-19] MEDS ORDERED: MAG HYDROX/AL HYDROX/SIMETH 30 ML UNIT-DOSE CUP PO PRN (16:22)
[2024-06-19] MEDS ORDERED: LOPERAMIDE HCL 2 MG CAPSULE PO PRN (16:22)
[2024-06-19] MEDS ORDERED: BISMUTH SUBSALICYLATE 524 MG/30 ML PO PRN (16:22)
[2024-06-19] MEDS ORDERED: BENZOCAINE/MENTHOL (CHLORASEPTIC ) LOZENGE MM PRN (16:22)
[2024-06-19] MEDS ORDERED: BENZONATATE 200 MG CAPSULE PO PRN (16:22)
[2024-06-19] MEDS ORDERED: ALBUTEROL SO4 HFA INHALER IH PRN (16:24)
[2024-06-19] MEDS ORDERED: chlordiazePOXIDE HCL 25 MG CAPSULE ONE (19:28)
[2024-06-19] MEDS: chlordiazePOXIDE HCL 25 MG CAPSULE PO SCH (19:36)
[2024-06-19] MEDS: PANTOPRAZOLE 20 MG TABLET PO SCH (22:18)
[2024-06-19] MEDS: GABAPENTIN 400 MG CAPSULE PO SCH (22:18)
[2024-06-19] MEDS: THIAMINE 100 MG TABLET PO SCH (22:18)
[2024-06-19] MEDS: MELATONIN 5 MG TABLETS PO SCH (22:18)
[2024-06-19] MEDS: cloNIDine HCL 0.1 MG TABLET PO SCH (22:24)
[2024-06-20] MEDS: METHOCARBAMOL 500 MG TABLET PO PRN (03:40)
[2024-06-20] MEDS ORDERED: methaDONE HCL 10 MG TABLET PO SCH (08:15)
[2024-06-20] MEDS: PRENATAL VITAMINS W/ FOLIC ACID TABLET (FP) PO SCH (10:06)
[2024-06-20] MEDS: IBUPROFEN 600 MG TABLET (FP) PO PRN (10:07)
[2024-06-20] MEDS: ESCITALOPRAM OXALATE 10 MG TABLET PO SCH (10:07)
[2024-06-20] MEDS: NICOTINE 14 MG/24 HOURS TOPICAL PATCH TD SCH (10:08)
[2024-06-20 11:13] LABS: CHLORIDE 104 mmol/L (98-107); POTASSIUM 3.8 mmol/L (3.5-5.1); SODIUM 141 mmol/L (136-145)
[2024-06-20 11:19] LABS: HEMATOCRIT 43.5 % (35.4-49); HEMOGLOBIN 14.2 GM/dL (11.7-16.9); MCH 27.6 pg (25.7-33.7); MCHC 32.6 g/dl (32.0-35.9); MEAN CELL VOLUME 84.8 fl (80-96); MEAN PLT VOLUME 8.3 fl (7.5-11.1); PLATELET COUNT 259 10^3/uL (134-434); RBC 5.13 M/mm3 (4.00-5.60); RDW 15.4 % (11.9-15.9); WHITE BLOOD COUNT 4.5 K/mm3 (4.0-10.0)
[2024-06-20 11:20] LABS: ALBUMIN 3.5 g/dl (3.4-5.0); ANION GAP 8 mmol/L (4-13); BLOOD UREA NITROGEN 13.2 mg/dL (7-18); CALCIUM 9.3 mg/dL (8.5-10.1); CO2 29 mmol/L (21-32); GLUCOSE,RANDOM 105 mg/dL (74-106)
[2024-06-20 11:21] LABS: CREATININE 0.9 mg/dL (0.55-1.3); SGOT/AST 19 U/L (15-37); SGPT/ALT 24 U/L (13-61)
[2024-06-20 11:23] LABS: BILIRUBIN,TOTAL 0.4 mg/dL (0.2-1)
[2024-06-20 11:24] LABS: ALK PHOS 63 U/L (45-117)
[2024-06-20 11:26] LABS: TOT PROT 6.7 g/dl (6.4-8.2)
[2024-06-20] MEDS: CEPHALEXIN MONOHYDRATE 500 MG CAPSULE (UD) PO SCH (11:27)
[2024-06-20] MEDS: chlordiazePOXIDE HCL 25 MG CAPSULE PO PRN (13:47)
[2024-06-20] MEDS: hydrOXYzine PAMOATE 25 MG CAPSULE (FP) PO PRN (20:28)
[2024-06-20] MEDS: SUVOREXANT 10 MG TABLET PO PRN (22:12)
[2024-06-21] MEDS: chlordiazePOXIDE HCL 25 MG CAPSULE PO SCH (05:29)
[2024-06-22] MEDS ORDERED: chlordiazePOXIDE HCL 10 MG CAPSULE PO PRN
[2024-06-22] MEDS: chlordiazePOXIDE HCL 10 MG CAPSULE PO SCH (05:35)
[2024-06-23] MEDS: chlordiazePOXIDE HCL 10 MG CAPSULE PO SCH (05:54)
[2024-06-24] MEDS: chlordiazePOXIDE HCL 10 MG CAPSULE PO ONE (05:34)
[2024-06-24 06:33] VITALS: RESP 18
[2024-06-24] MEDS: NALOXONE (NYS OPIOID OVERDOSE PROGRAM) 4 MG/0.1 ML SPRAY NS SCH (09:00)
[2024-06-24 09:40] VITALS: BP 154/83; PULSE 75; TEMP 98
== END 2024-06-24 09:08 | disposition home or self-care (01) | DRG 773 ==
LOC: YASAS 15:23 → Y3N 19:28
PROVIDERS: ADMIT Allergy & Immunology; ATTEND Surgery
PROC: HZ2ZZZZ Detoxification Services for Substance Abuse Treatment (ICD-10-PCS; principal; 2024-06-19)
DX: F10.230 Alcohol dependence with withdrawal, uncomplicated (principal); F11.20 Opioid dependence, uncomplicated; F13.20 Sedative, hypnotic or anxiolytic dependence, uncomplicated; F17.210 Nicotine dependence, cigarettes, uncomplicated; F19.280 Other psychoactive substance dependence with psychoactive substance-induced anxiety disorder; F19.282 Other psychoactive substance dependence with psychoactive substance-induced sleep disorder; F41.9 Anxiety disorder, unspecified; F90.9 Attention-deficit hyperactivity disorder, unspecified type; I10 Essential (primary) hypertension; J45.20 Mild intermittent asthma, uncomplicated; K21.9 Gastro-esophageal reflux disease without esophagitis; Z86.69 Personal history of other diseases of the nervous system and sense organs
CPT/HCPCS: 36415; 80053; 80305; 80307; 85027; 86780; 93005; 93010

== ENCOUNTER 2024-07-21 17:13 | Inpatient (IN) | payer OTHER ==
[2024-07-21 18:07] VITALS: BMI 27.8
[2024-07-21] MEDS ORDERED: DICYCLOMINE HCL 10 MG CAPSULE PO PRN (19:17)
[2024-07-21] MEDS ORDERED: ONDANSETRON *ODT* 4 MG TABLET SL PRN (19:17)
[2024-07-21] MEDS ORDERED: BENZOCAINE/MENTHOL (CHLORASEPTIC ) LOZENGE MM PRN (19:17)
[2024-07-21] MEDS ORDERED: BISMUTH SUBSALICYLATE 524 MG/30 ML PO PRN (19:17)
[2024-07-21] MEDS ORDERED: NALOXONE (NARCAN) HCL 4 MG/0.1 ML SPRAY NS PRN (19:17)
[2024-07-21] MEDS ORDERED: POLYETHYLENE GLYCOL (HEALTHYLAX) 3350 17 GM PACKET PO PRN (19:17)
[2024-07-21] MEDS ORDERED: MAGNESIUM HYDROX 2400MG/30ML ORAL SUSPENSION 30 ML CUP PO PRN (19:17)
[2024-07-21] MEDS ORDERED: IBUPROFEN 400 MG TABLET (FP) PO PRN (19:17)
[2024-07-21] MEDS ORDERED: chlordiazePOXIDE HCL 25 MG CAPSULE PO PRN (19:17)
[2024-07-21] MEDS ORDERED: guaiFENesin 600 MG TABLET.ER (FP) PO PRN (19:17)
[2024-07-21] MEDS ORDERED: BENZONATATE 200 MG CAPSULE PO PRN (19:17)
[2024-07-21] MEDS ORDERED: MAG HYDROX/AL HYDROX/SIMETH 30 ML UNIT-DOSE CUP PO PRN (19:17)
[2024-07-21] MEDS ORDERED: IBUPROFEN 600 MG TABLET (FP) PO PRN (19:17)
[2024-07-21] MEDS ORDERED: NICOTINE POLACRILEX 4 MG GUM BUC PRN (19:17)
[2024-07-21] MEDS ORDERED: LOPERAMIDE HCL 2 MG CAPSULE PO PRN (19:17)
[2024-07-21] MEDS: MELATONIN 5 MG TABLETS PO SCH (21:52)
[2024-07-21] MEDS: ACETAMINOPHEN 325 MG TABLET (FP) PO PRN (21:56)
[2024-07-21] MEDS: chlordiazePOXIDE HCL 25 MG CAPSULE PO SCH (22:01)
[2024-07-21] MEDS: THIAMINE 100 MG TABLET PO SCH (22:01)
[2024-07-22] MEDS: hydrOXYzine PAMOATE 25 MG CAPSULE (FP) PO PRN (01:31)
[2024-07-22] MEDS: METHOCARBAMOL 500 MG TABLET PO PRN (01:31)
[2024-07-22 08:43] LABS: CHLORIDE 102 mmol/L (98-107); POTASSIUM 4.3 mmol/L (3.5-5.1); SODIUM 139 mmol/L (136-145)
[2024-07-22 08:48] LABS: CALCIUM 9.4 mg/dL (8.5-10.1)
[2024-07-22 08:49] LABS: ANION GAP 7 mmol/L (4-13); BLOOD UREA NITROGEN 12.1 mg/dL (7-18); CO2 31 mmol/L (21-32); GLUCOSE,RANDOM 80 mg/dL (74-106)
[2024-07-22 08:50] LABS: SGOT/AST 25 U/L (15-37); SGPT/ALT 30 U/L (13-61)
[2024-07-22 08:52] LABS: BILIRUBIN,TOTAL 0.3 mg/dL (0.2-1); CREATININE 0.8 mg/dL (0.55-1.3); HEMATOCRIT 41.5 % (35.4-49); HEMOGLOBIN 14.2 GM/dL (11.7-16.9); MCH 28.5 pg (25.7-33.7); MCHC 34.2 g/dl (32.0-35.9); MEAN CELL VOLUME 83.3 fl (80-96); PLATELET COUNT 299 10^3/uL (134-434); RBC 4.98 M/mm3 (4.00-5.60); RDW 14.8 % (11.9-15.9); TOT PROT 7.5 g/dl (6.4-8.2); WHITE BLOOD COUNT 5.4 K/mm3 (4.0-10.0)
[2024-07-22 08:53] LABS: ALK PHOS 63 U/L (45-117)
[2024-07-22] MEDS: PRENATAL VITAMINS W/ FOLIC ACID TABLET (FP) PO SCH (10:10)
[2024-07-22] MEDS: NICOTINE 14 MG/24 HOURS TOPICAL PATCH TD SCH (10:10)
[2024-07-22 10:51] LABS: HIV INTERPRETATION NEGATIVE (NEGATIVE)
[2024-07-22] MEDS: methaDONE HCL 10 MG TABLET PO SCH (11:03)
[2024-07-22] MEDS: cloNIDine HCL 0.1 MG TABLET PO SCH (12:05)
[2024-07-22] MEDS: ESCITALOPRAM OXALATE 10 MG TABLET PO SCH (12:05)
[2024-07-22] MEDS: GABAPENTIN 400 MG CAPSULE PO SCH (13:11)
[2024-07-22] MEDS: SUVOREXANT 10 MG TABLET PO PRN (22:10)
[2024-07-23] MEDS: chlordiazePOXIDE HCL 25 MG CAPSULE PO SCH (05:44)
[2024-07-23] MEDS: PANTOPRAZOLE 20 MG TABLET PO SCH (10:14)
[2024-07-24] MEDS ORDERED: chlordiazePOXIDE HCL 10 MG CAPSULE PO PRN
[2024-07-24] MEDS: chlordiazePOXIDE HCL 10 MG CAPSULE PO SCH (05:36)
[2024-07-25] MEDS: chlordiazePOXIDE HCL 10 MG CAPSULE PO SCH (05:35)
[2024-07-26] MEDS: chlordiazePOXIDE HCL 10 MG CAPSULE PO ONE ×2 (05:15→17:11)
[2024-07-27 06:47] VITALS: RESP 16
[2024-07-27 09:52] VITALS: BP 130/87; PULSE 80; TEMP 97.9
== END 2024-07-27 11:30 | disposition home or self-care (01) | DRG 773 ==
LOC: YASAS 17:13 → Y6N 21:03
PROVIDERS: ADMIT Allergy & Immunology; ATTEND Allergy & Immunology
PROC: HZ2ZZZZ Detoxification Services for Substance Abuse Treatment (ICD-10-PCS; principal; 2024-07-21)
DX: F10.230 Alcohol dependence with withdrawal, uncomplicated (principal); F11.20 Opioid dependence, uncomplicated; F13.20 Sedative, hypnotic or anxiolytic dependence, uncomplicated; F14.10 Cocaine abuse, uncomplicated; F17.210 Nicotine dependence, cigarettes, uncomplicated; F19.280 Other psychoactive substance dependence with psychoactive substance-induced anxiety disorder; F19.282 Other psychoactive substance dependence with psychoactive substance-induced sleep disorder; F41.8 Other specified anxiety disorders; I10 Essential (primary) hypertension; K21.9 Gastro-esophageal reflux disease without esophagitis
CPT/HCPCS: 36415; 80053; 80305; 80307; 85027; 86780; 86803; 87389; 93005; 93010

== ENCOUNTER 2024-08-15 15:24 | Inpatient (IN) | payer OTHER ==
[2024-08-15 16:46] VITALS: BMI 27.6
[2024-08-15] MEDS ORDERED: BENZOCAINE/MENTHOL (CHLORASEPTIC ) LOZENGE MM PRN (18:46)
[2024-08-15] MEDS ORDERED: LOPERAMIDE HCL 2 MG CAPSULE PO PRN (18:46)
[2024-08-15] MEDS ORDERED: NALOXONE (NARCAN) HCL 4 MG/0.1 ML SPRAY NS PRN (18:46)
[2024-08-15] MEDS ORDERED: DICYCLOMINE HCL 10 MG CAPSULE PO PRN (18:46)
[2024-08-15] MEDS ORDERED: NICOTINE POLACRILEX 4 MG GUM BUC PRN (18:46)
[2024-08-15] MEDS ORDERED: BENZONATATE 200 MG CAPSULE PO PRN (18:46)
[2024-08-15] MEDS ORDERED: MAGNESIUM HYDROX 2400MG/30ML ORAL SUSPENSION 30 ML CUP PO PRN (18:46)
[2024-08-15] MEDS ORDERED: MAG HYDROX/AL HYDROX/SIMETH 30 ML UNIT-DOSE CUP PO PRN (18:46)
[2024-08-15] MEDS ORDERED: ONDANSETRON *ODT* 4 MG TABLET SL PRN (18:46)
[2024-08-15] MEDS ORDERED: POLYETHYLENE GLYCOL (HEALTHYLAX) 3350 17 GM PACKET PO PRN (18:46)
[2024-08-15] MEDS ORDERED: BISMUTH SUBSALICYLATE 524 MG/30 ML PO PRN (18:46)
[2024-08-15] MEDS ORDERED: IBUPROFEN 400 MG TABLET (FP) PO PRN (18:46)
[2024-08-15] MEDS ORDERED: ACETAMINOPHEN 325 MG TABLET (FP) PO PRN (18:46)
[2024-08-15] MEDS ORDERED: guaiFENesin 600 MG TABLET.ER (FP) PO PRN (18:46)
[2024-08-15] MEDS: METHOCARBAMOL 500 MG TABLET PO PRN (22:29)
[2024-08-15] MEDS: chlordiazePOXIDE HCL 25 MG CAPSULE PO SCH (22:29)
[2024-08-15] MEDS: THIAMINE 100 MG TABLET PO SCH (22:30)
[2024-08-15] MEDS: MELATONIN 5 MG TABLETS PO SCH (22:30)
[2024-08-16] MEDS: IBUPROFEN 600 MG TABLET (FP) PO PRN (06:18)
[2024-08-16] MEDS: chlordiazePOXIDE HCL 25 MG CAPSULE PO PRN (07:45)
[2024-08-16] MEDS ORDERED: ALBUTEROL SO4 HFA INHALER IH PRN (08:25)
[2024-08-16] MEDS: GABAPENTIN 300 MG CAPSULE PO SCH (08:49)
[2024-08-16] MEDS: methaDONE HCL 40 MG DISPERSABLE TABLET PO SCH (08:49)
[2024-08-16] MEDS: PRENATAL VITAMINS W/ FOLIC ACID TABLET (FP) PO SCH (10:16)
[2024-08-16] MEDS: cloNIDine HCL 0.1 MG TABLET PO SCH (10:16)
[2024-08-16] MEDS: FAMOTIDINE 20 MG TABLET PO SCH (10:16)
[2024-08-16] MEDS: NICOTINE 14 MG/24 HOURS TOPICAL PATCH TD SCH (10:16)
[2024-08-16 12:03] LABS: CHLORIDE 101 mmol/L (98-107); POTASSIUM 4.1 mmol/L (3.5-5.1); SODIUM 137 mmol/L (136-145)
[2024-08-16 12:04] LABS: HEMATOCRIT 43.6 % (35.4-49); HEMOGLOBIN 14.7 GM/dL (11.7-16.9); MCH 28.4 pg (25.7-33.7); MCHC 33.9 g/dl (32.0-35.9); MEAN CELL VOLUME 83.8 fl (80-96); MEAN PLT VOLUME 7.7 fl (7.5-11.1); PLATELET COUNT 265 10^3/uL (134-434); RBC 5.19 M/mm3 (4.00-5.60); RDW 15.1 % (11.9-15.9); WHITE BLOOD COUNT 5.3 K/mm3 (4.0-10.0)
[2024-08-16 12:06] LABS: CALCIUM 9.7 mg/dL (8.5-10.1); GLUCOSE,RANDOM 91 mg/dL (74-106)
[2024-08-16 12:07] LABS: ALBUMIN 4.2 g/dl (3.4-5.0); ANION GAP 6 mmol/L (4-13); BLOOD UREA NITROGEN 10.4 mg/dL (7-18); CO2 30 mmol/L (21-32)
[2024-08-16 12:09] LABS: CREATININE 0.9 mg/dL (0.55-1.3)
[2024-08-16 12:10] LABS: SGOT/AST 16 U/L (15-37); SGPT/ALT 17 U/L (13-61)
[2024-08-16 12:11] LABS: BILIRUBIN,TOTAL 0.6 mg/dL (0.2-1); TOT PROT 7.8 g/dl (6.4-8.2)
[2024-08-16 12:12] LABS: ALK PHOS 70 U/L (45-117)
[2024-08-16] MEDS: hydrOXYzine PAMOATE 25 MG CAPSULE (FP) PO PRN (14:08)
[2024-08-16] MEDS: SUVOREXANT 10 MG TABLET PO PRN (22:06)
[2024-08-17] MEDS: chlordiazePOXIDE HCL 25 MG CAPSULE PO SCH (05:48)
[2024-08-17] MEDS: GABAPENTIN 400 MG CAPSULE PO SCH (13:41)
[2024-08-18] MEDS ORDERED: chlordiazePOXIDE HCL 10 MG CAPSULE PO PRN
[2024-08-18] MEDS: chlordiazePOXIDE HCL 10 MG CAPSULE PO SCH (05:32)
[2024-08-19] MEDS: chlordiazePOXIDE HCL 10 MG CAPSULE PO SCH (05:33)
[2024-08-19] MEDS: SUVOREXANT 10 MG TABLET PO PRN (22:20)
[2024-08-20] MEDS: chlordiazePOXIDE HCL 10 MG CAPSULE PO ONE (05:26)
[2024-08-20 06:00] VITALS: BP 115/72
[2024-08-20 08:57] VITALS: PULSE 67; RESP 18; TEMP 96.9
== END 2024-08-20 10:50 | disposition home or self-care (01) | DRG 773 ==
LOC: YASAS 15:24 → Y3N 20:06
PROVIDERS: ADMIT Allergy & Immunology; ATTEND Allergy & Immunology
PROC: HZ2ZZZZ Detoxification Services for Substance Abuse Treatment (ICD-10-PCS; principal; 2024-08-15)
DX: F10.230 Alcohol dependence with withdrawal, uncomplicated (principal); F14.20 Cocaine dependence, uncomplicated; F11.20 Opioid dependence, uncomplicated; F13.230 Sedative, hypnotic or anxiolytic dependence with withdrawal, uncomplicated; F17.210 Nicotine dependence, cigarettes, uncomplicated; F41.9 Anxiety disorder, unspecified; G62.9 Polyneuropathy, unspecified; I10 Essential (primary) hypertension; J45.909 Unspecified asthma, uncomplicated; K21.9 Gastro-esophageal reflux disease without esophagitis; Z86.59 Personal history of other mental and behavioral disorders; Z86.69 Personal history of other diseases of the nervous system and sense organs
CPT/HCPCS: 36415; 80053; 80305; 80307; 85027; 86780; 93005; 93010

== ENCOUNTER 2024-10-16 14:06 | Inpatient (IN) | payer OTHER ==
[2024-10-16 14:17] VITALS: BMI 29.8
[2024-10-16] MEDS ORDERED: NALOXONE (NARCAN) HCL 4 MG/0.1 ML SPRAY NS PRN (15:46)
[2024-10-16] MEDS ORDERED: IBUPROFEN 400 MG TABLET (FP) PO PRN (15:46)
[2024-10-16] MEDS ORDERED: BISMUTH SUBSALICYLATE 262 MG/15 ML BTL PO PRN (15:46)
[2024-10-16] MEDS ORDERED: DICYCLOMINE HCL 10 MG CAPSULE PO PRN (15:46)
[2024-10-16] MEDS ORDERED: MAGNESIUM HYDROX 2400MG/30ML ORAL SUSPENSION 30 ML CUP PO PRN (15:46)
[2024-10-16] MEDS ORDERED: POLYETHYLENE GLYCOL (HEALTHYLAX) 3350 17 GM PACKET PO PRN (15:46)
[2024-10-16] MEDS ORDERED: BENZOCAINE/MENTHOL (CHLORASEPTIC ) LOZENGE MM PRN (15:46)
[2024-10-16] MEDS ORDERED: ACETAMINOPHEN 325 MG TABLET (FP) PO PRN (15:46)
[2024-10-16] MEDS ORDERED: MAG HYDROX/AL HYDROX/SIMETH 30 ML UNIT-DOSE CUP PO PRN (15:46)
[2024-10-16] MEDS ORDERED: LOPERAMIDE HCL 2 MG CAPSULE PO PRN (15:46)
[2024-10-16] MEDS ORDERED: guaiFENesin 600 MG TABLET.ER (FP) PO PRN (15:46)
[2024-10-16] MEDS ORDERED: BENZONATATE 200 MG CAPSULE PO PRN (15:46)
[2024-10-16] MEDS ORDERED: IBUPROFEN 600 MG TABLET (FP) PO PRN (15:46)
[2024-10-16] MEDS: diazePAM 5 MG TABLET PO PRN (18:25)
[2024-10-16] MEDS: METHOCARBAMOL 500 MG TABLET PO PRN (18:26)
[2024-10-16] MEDS: MELATONIN 5 MG TABLETS PO SCH (22:05)
[2024-10-16] MEDS: THIAMINE 100 MG TABLET PO SCH (22:05)
[2024-10-16] MEDS: diazePAM 5 MG TABLET PO SCH (22:05)
[2024-10-16] MEDS: hydrOXYzine PAMOATE 25 MG CAPSULE (FP) PO PRN (22:06)
[2024-10-17] MEDS: ONDANSETRON *ODT* 4 MG TABLET SL PRN (06:26)
[2024-10-17] MEDS ORDERED: ALBUTEROL SO4 HFA INHALER IH PRN (08:05)
[2024-10-17] MEDS: methaDONE HCL 40 MG DISPERSABLE TABLET PO SCH (08:38)
[2024-10-17] MEDS ORDERED: cloNIDine HCL 0.1 MG TABLET PO SCH (10:00)
[2024-10-17] MEDS: NICOTINE 21 MG/24 HOURS TOPICAL PATCH TD SCH (10:06)
[2024-10-17] MEDS: PRENATAL VITAMINS W/ FOLIC ACID TABLET (FP) PO SCH (10:08)
[2024-10-17] MEDS: FAMOTIDINE 20 MG TABLET PO SCH (10:08)
[2024-10-17] MEDS: cloNIDine HCL 0.1 MG TABLET PO SCH (10:08)
[2024-10-17 11:08] LABS: CHLORIDE 97 mmol/L (98-107); HEMATOCRIT 40.5 % (40.1-51.0); HEMOGLOBIN 13.3 g/dL (13.7-17.5); MCHC 32.8 g/dl (32.3-36.5); MEAN CELL VOLUME 86.9 fl (79.0-92.2); MEAN PLT VOLUME 10.8 fl (9.4-12.4); PLATELET COUNT 271 x10^3/uL (163-337); POTASSIUM 4.3 mmol/L (3.5-5.1); RDW 13.2 % (11.9-15.3); SODIUM 143 mmol/L (136-145)
[2024-10-17 11:13] LABS: ANION GAP 13 mmol/L (4-13); BLOOD UREA NITROGEN 11.2 mg/dL (7-18); CALCIUM 10.3 mg/dL (8.5-10.1); CO2 33 mmol/L (21-32); GLUCOSE,RANDOM 87 mg/dL (74-106)
[2024-10-17 11:15] LABS: SGOT/AST 50 U/L (15-37); SGPT/ALT 64 U/L (13-61)
[2024-10-17 11:17] LABS: BILIRUBIN,TOTAL 0.5 mg/dL (0.2-1); TOT PROT 7.5 g/dl (6.4-8.2)
[2024-10-17 11:18] LABS: ALK PHOS 56 U/L (45-117)
[2024-10-17] MEDS: GABAPENTIN 400 MG CAPSULE PO SCH (13:03)
[2024-10-17] MEDS: SUVOREXANT 10 MG TABLET PO PRN (22:10)
[2024-10-18] MEDS: diazePAM 5 MG TABLET PO SCH (05:17)
[2024-10-18] MEDS: NICOTINE POLACRILEX 4 MG GUM BUC PRN (09:46)
[2024-10-19] MEDS: diazePAM 5 MG TABLET PO SCH (05:25)
[2024-10-20] MEDS: diazePAM 5 MG TABLET PO ONE (06:13)
[2024-10-20 09:02] VITALS: BP 136/81; PULSE 78; RESP 18; TEMP 97.1
== END 2024-10-20 12:23 | disposition other institution (70) | DRG 773 ==
LOC: YASAS 14:06 → Y3N 17:49
PROVIDERS: ADMIT Allergy & Immunology; ATTEND Allergy & Immunology
PROC: HZ2ZZZZ Detoxification Services for Substance Abuse Treatment (ICD-10-PCS; principal; 2024-10-16)
DX: F10.230 Alcohol dependence with withdrawal, uncomplicated (principal); F13.230 Sedative, hypnotic or anxiolytic dependence with withdrawal, uncomplicated; F11.20 Opioid dependence, uncomplicated; F14.20 Cocaine dependence, uncomplicated; F17.210 Nicotine dependence, cigarettes, uncomplicated; F19.24 Other psychoactive substance dependence with psychoactive substance-induced mood disorder; F41.9 Anxiety disorder, unspecified; G47.00 Insomnia, unspecified; I10 Essential (primary) hypertension; J45.909 Unspecified asthma, uncomplicated; K21.9 Gastro-esophageal reflux disease without esophagitis; Z86.69 Personal history of other diseases of the nervous system and sense organs
CPT/HCPCS: 36415; 80053; 80305; 80307; 85027; 86780; 87811; 93005; 93010; Q0162